=== PATIENT | female | born 1975 | race Caucasian/White ===

== ENCOUNTER 2019-02-26 16:31 | Emergency (ER) | payer MEDICAID, SELFPAY ==
[2019-02-26 17:07] VITALS: BP 160/91; PULSE 108; RESP 20; TEMP 36.3; O2SAT 97; BMI 38.9
[2019-02-26 17:56] LABS: Alanine Aminotransferase 22 U/L (0-33); Albumin Level 4.5 g/dL (3.5-5.2); Alkaline Phosphatase 126 IU/L (35-105); Anion Gap 17.3 (5-19); Aspartate Amino Transferase 19 U/L (0-32); Blood Urea Nitrogen 7 mg/dL (6-20); Calcium 10.3 mg/Dl (8.6-10.0); Carbon Dioxide 27 mmol/L (22-29); Chloride 92 mmol/L (98-107); Globulin 3.3 g/dL (1.3-4.6); Glomerular Filtration Rate 109.6 mL/min (90-130); Glucose 191 mg/dL (74-109); Potassium 4.3 mmol/L (3.5-5.1); Sodium 132 mmol/L (136-145); Total Bilirubin 0.4 mg/dL (0.15-1.2); Total Protein 7.8 g/dL (6.6-8.7)
[2019-02-26 18:01] LABS: Hematocrit 41.7 % (37.0-47.0); Hemoglobin 13.6 g/dL (11.5-15.3); Mean Corpuscular HGB Conc 32.6 g/dL (30.0-36.0); Mean Corpuscular Hemoglobin 27.8 pg (28.0-34.0); Mean Corpuscular Volume 85.3 fL (81-99); Platelet Count 466 10^3/cmm (130-400); Red Blood Count 4.89 10^6/uL (4.1-5.3); Red Cell Distribution Width 12.8 % (12.1-15.1); White Blood Count 12.9 10^3/uL (4.0-10.0)
[2019-02-26 18:26] LABS: HCG Qualitative Urine. Negative (Negative)
[2019-02-26 18:59] LABS: Absolute Eosinophils 0.1 10^3/cmm (0.0-0.7); Absolute Segmented Neutrophil 10.3 10/cmm (1.6-7.1); Eosinophils 1 %; Lymphocytes 16 %; Lymphocytes Absolute 2.2 10^3/cmm (1.2-3.4); Monocytes Absolute 0.3 10^3/cmm (0.1-0.6); Segmented Neutrophils 80 %; Total Cells Counted 100 (0-100)
[2019-02-26 19:00] LABS: Platelet Estimate Normal (Normal)
--- NOTE | 2019-02-26 23:07 | ED_ITS ---
HPI - General Adult General: Chief complaint: Vaginal Bleeding Stated complaint: vaginal bleeding Time Seen by Provider: 02/26/19 22:59 History of Present Illness: HPI narrative: Having cramping parents x4 weeks. Patient has history of tubal. Patient has appointment with her PCP on Onset (ago): week(s) Severity: moderate Associated symptoms: Deny chest pain, dyspnea, headache(s), nausea, rash or vomiting Review of Systems Const: Denies: fever, chills or body aches Eyes: Denies: change in vision or blurry vision ENMT: Denies: throat pain or nasal congestion Card: Denies: chest pain or shortness of breath on exertion Resp: Denies: shortness of breath, productive cough or non-productive cough GI: Denies: abdominal pain, nausea or vomiting : Reports: painful menstruation and irregular period (lasting 4 weeks with some clots); Denies: vaginal discharge, absence of menstruation, pelvic pain or pain during intercourse Musc: Denies: extremity pain Skin/Breast: Denies: rash Neuro: Denies: headache Psych: Denies: anxiety or depression Pedro/Lymph: Denies: easy bruising PFSH ED PFSH: Statuses (acute, chronic, etc) shown below reflect problem list status as previously entered and may not be historically accurate Social History Smoking and tobacco status: current every day smoker Female Reproductive History: Date of last menstrual period: 01/25/19 Physical Exam Const: COMMON NORMALS: no apparent distress, average body habitus and oriented x3 HENMT: COMMON NORMALS: normocephalic HEAD & SCALP: normal to inspection and normocephalic FACE & SINUS: normal facial exam Eye: COMMON NORMALS: conjunctivae normal GENERAL EYE: normal appearance of both eyes CONJUNCTIVA: Yes conjunctivae normal Neck/C-Spine: COMMON NORMALS: no JVD Chest: COMMONS NORMALS: inspection of chest normal Resp: COMMON NORMALS: normal respiratory effort and clear to auscultation bilaterally AUSCULTATION: clear to auscultation bilaterally Cardio: COMMON NORMALS: no JVD, regular rate and regular rhythm RATE: regular rate RHYTHM: regular rhythm GI: PALPATION: Yes tender Details: other (pelvic area) GI image (female): 1. Extremity: COMMON NORMALS: normal to inspection and full ROM Neuro: COMMON NORMALS: oriented x3 Course Vital Signs: Vital signs: Vital Signs Temperature 97.4 F L 02/26/19 17:07 Pulse Rate 100 02/26/19 23:35 Respiratory Rate 18 02/26/19 23:35 Blood Pressure 147/85 02/26/19 23:35 Pulse Oximetry 93 02/26/19 23:35 [facility] - General Adult Lab Data: Labs: Lab Results 02/26/19 02/26/19 02/26/19 Range/Units 17:30 17:30 17:50 WBC 12.9 H (4.0-10.0) 10^3/ uL RBC 4.89 (4.1-5.3) 10^6/u L Hgb 13.6 (11.5-15.3) g/dL Hct 41.7 (37.0-47.0) % MCV 85.3 (81-99) fL MCH 27.8 L (28.0-34.0) pg MCHC 32.6 (30.0-36.0) g/dL RDW 12.8 (12.1-15.1) % Plt Count 466 H (130-400) 10^3/c mm MPV 10.0 (7.4-10.4) fL Total Counted 100 (0-100) Atypical Lymphs % 1.0 (0-5) % Segmented Neutroph ils 80 % Absolute Lymphocyt es 2.2 (1.2-3.4) 10^3/c mm Lymphocytes (Manua l) 16 % Monocytes (Manual) 2.0 % Absolute Monocytes 0.3 (0.1-0.6) 10^3/c mm Eosinophils (Manua l) 1 % Absolute Eosinophi ls 0.1 (0.0-0.7) 10^3/c mm Platelet Estimate Normal (Normal) Sodium 132 L (136-145) mmol/L Potassium 4.3 (3.5-5.1) mmol/L Chloride 92 L (98-107) mmol/L Carbon Dioxide 27 (22-29) mmol/L Anion Gap 17.3 (5-19) BUN 7 (6-20) mg/dL Creatinine 0.6 (0.5-0.9) mg/dL GFR Calculation 109.6 (90-130) mL/min Glucose 191 H (74-109) mg/dL Calcium 10.3 H (8.6-10.0) mg/Dl Total Bilirubin 0.4 (0.15-1.2) mg/dL AST 19 (0-32) U/L ALT 22 (0-33) U/L Alkaline Phosphata se 126 H (35-105) IU/L Total Protein 7.8 (6.6-8.7) g/dL Albumin 4.5 (3.5-5.2) g/dL Globulin 3.3 (1.3-4.6) g/dL HCG, Qual Negative (Negative) Urine Color (Yellow) Urine Appearance (CLEAR) Urine pH (5-7) Ur Specific Gravit y (1.005-1.030) Urine Protein (Negative) Urine Glucose (UA) (Normal) Urine Ketones (Negative) Urine Occult Blood (Negative) Urine Nitrate (Negative) Urine Bilirubin (NEGATIVE) Urine Urobilinogen (Negative) mg/dL Ur Leukocyte Elizabeth ase (Negative) 02/26/19 Range/Units 17:50 WBC (4.0-10.0) 10^3/ uL RBC (4.1-5.3) 10^6/u L Hgb (11.5-15.3) g/dL Hct (37.0-47.0) % MCV (81-99) fL MCH (28.0-34.0) pg MCHC (30.0-36.0) g/dL RDW (12.1-15.1) % Plt Count (130-400) 10^3/c mm MPV (7.4-10.4) fL Total Counted (0-100) Atypical Lymphs % (0-5) % Segmented Neutroph ils % Absolute Lymphocyt es (1.2-3.4) 10^3/c mm Lymphocytes (Manua l) % Monocytes (Manual) % Absolute Monocytes (0.1-0.6) 10^3/c mm Eosinophils (Manua l) % Absolute Eosinophi ls (0.0-0.7) 10^3/c mm Platelet Estimate (Normal) Sodium (136-145) mmol/L Potassium (3.5-5.1) mmol/L Chloride (98-107) mmol/L Carbon Dioxide (22-29) mmol/L Anion Gap (5-19) BUN (6-20) mg/dL Creatinine (0.5-0.9) mg/dL GFR Calculation (90-130) mL/min Glucose (74-109) mg/dL Calcium (8.6-10.0) mg/Dl Total Bilirubin (0.15-1.2) mg/dL AST (0-32) U/L ALT (0-33) U/L Alkaline Phosphata se (35-105) IU/L Total Protein (6.6-8.7) g/dL Albumin (3.5-5.2) g/dL Globulin (1.3-4.6) g/dL HCG, Qual (Negative) Urine Color Yellow (Yellow) Urine Appearance Hazy A (CLEAR) Urine pH 7 (5-7) Ur Specific Gravit y 1.015 (1.005-1.030) Urine Protein Neg (Negative) Urine Glucose (UA) Norm (Normal) Urine Ketones Negative (Negative) Urine Occult Blood 3+ H (Negative) Urine Nitrate Negative (Negative) Urine Bilirubin Neg (NEGATIVE) Urine Urobilinogen 1 H (Negative) mg/dL Ur Leukocyte Elizabeth ase Negative (Negative) Discharge Plan Discharge Patient Disposition: Home, Self-Care Clinical Impression: Menometrorrhagia Condition: Stable Prescriptions: New hydrocodone-acetaminophen 5-325 mg tablet 1 tab PO Q6H PRN (Reason: pain) Qty: 14 RF: 0 medroxyprogesterone [Provera] 10 mg tablet 10 mg PO DAILY 10 Days RF: 0 ondansetron HCl [Zofran] 4 mg tablet 4 mg PO Q8H PRN (Reason: nausea and vomiting) 5 Days Qty: 14 RF: 0 Discharge Orders: Discharge Order (Routine); Ordered 02/26/19 Ordered By: Trevin Quiñonez Referrals: Maday Lamb APN [Family Provider] - Yolanda Madrigal FNP [Primary Care Provider] - Discharge Diet: Usual diet Discharge Activity: Increase activity as tolerated Patient Instructions: Dysmenorrhea (ED) Activity Restrictions/Additional Instructions: Take medication as prescribed. Follow-up with family PCP as directed. Can return if worsens. Drink plenty of fluids. Coding Level of Care Code ED Marketing Operations Assistant for Chg Fwd Exam Problem Focused
[2019-02-26 23:10] VITALS: BP 158/102; PULSE 100; RESP 18; O2SAT 94
[2019-02-26] MEDS: medroxyprogesterone 2.5 mg Tablet 10 MG PO (23:31)
[2019-02-26] MEDS: ondansetron 4 MG Tablet 8 MG PO (23:31)
[2019-02-26] MEDS: HYDROcodone-acetaminophen 7.5-325 mg Tablet 1 TAB PO (23:31)
[2019-02-26 23:35] VITALS: BP 147/85; PULSE 100; RESP 18; O2SAT 93
[2019-02-26 23:37] LABS: Protein Urine Neg (Negative); Specific Gravity, Urine 1.015 (1.005-1.030); Urine Appearance Hazy (CLEAR); Urine Color Yellow (Yellow); pH Urine 7 (5-7)
[2019-02-26 23:38] LABS: Add Urine Microscopic? YES; Bilirubin Urine Neg (NEGATIVE); Blood Urine 3+ (Negative); Glucose Urine UA Norm (Normal); Ketones Urine Negative (Negative); Leukocyte Esterase Urine Negative (Negative); Nitrate Urine Negative (Negative); Urobilinogen Urine 1 mg/dL (Negative)
[2019-02-26 23:42] LABS: Add Urine Culture? No; Bacteria Urine TRACE; Mucus Urine 2+; RBC Urine 0-4 /hpf (0-2); Squamous Epithelial Cell Urine 25-40 (0-5)
[2019-02-27 00:49] VITALS: BP 157/100; PULSE 91; RESP 16; O2SAT 95
== END 2019-02-27 00:50 | disposition home or self-care (01) ==
PROVIDERS: Family Medicine; Emergency Provider Nurse Practitioner Family; Family Provider Nurse Practitioner Family; PCP Nurse Practitioner Family
DX: N92.1 Excessive and frequent menstruation with irregular cycle (principal); F17.210 Nicotine dependence, cigarettes, uncomplicated
CPT/HCPCS: 36415; 80053; 81003; 81025; 85007; 85027; 99282; Q0162

== ENCOUNTER → 2019-02-28 15:24 | Outpatient (BNVA) | payer MEDICAID, SELFPAY | PROVIDERS: Family Provider Nurse Practitioner Family; PCP Nurse Practitioner Family; Visit Provider Nurse Practitioner Family | DX: E11.9 Type 2 diabetes mellitus without complications (principal); N92.1 Excessive and frequent menstruation with irregular cycle | CPT/HCPCS: 83036 ==

== ENCOUNTER → 2019-03-21 14:46 | Outpatient (BNVA) | payer MEDICAID, SELFPAY | PROVIDERS: Family Provider Nurse Practitioner Family; PCP Nurse Practitioner Family; Visit Provider Social Worker | DX: F43.12 Post-traumatic stress disorder, chronic (principal); F33.1 Major depressive disorder, recurrent, moderate; F41.0 Panic disorder [episodic paroxysmal anxiety] | CPT/HCPCS: 90832 ==

== ENCOUNTER → 2019-04-04 14:50 | Outpatient (BNVA) | payer MEDICAID, SELFPAY | PROVIDERS: PCP Nurse Practitioner Family; Visit Provider Social Worker | DX: F43.12 Post-traumatic stress disorder, chronic (principal); F33.1 Major depressive disorder, recurrent, moderate; F41.0 Panic disorder [episodic paroxysmal anxiety] | CPT/HCPCS: 90832; 90834 ==

== ENCOUNTER → 2019-04-09 09:45 | Outpatient (BNVA) | payer MEDICAID, SELFPAY | PROVIDERS: Family Provider Nurse Practitioner Family; PCP Nurse Practitioner Family; Visit Provider Nurse Practitioner Psychiatric/Mental Health | DX: F33.1 Major depressive disorder, recurrent, moderate (principal); F43.12 Post-traumatic stress disorder, chronic; F41.0 Panic disorder [episodic paroxysmal anxiety]; F17.210 Nicotine dependence, cigarettes, uncomplicated | CPT/HCPCS: 99214 ==

== ENCOUNTER → 2019-04-18 15:36 | Outpatient (BNVA) | payer MEDICAID, SELFPAY | PROVIDERS: Family Provider Nurse Practitioner Family; PCP Nurse Practitioner Family; Visit Provider Social Worker | DX: F43.12 Post-traumatic stress disorder, chronic (principal); F33.1 Major depressive disorder, recurrent, moderate; F41.0 Panic disorder [episodic paroxysmal anxiety] | CPT/HCPCS: 90834 ==

== ENCOUNTER → 2019-04-22 10:33 | Outpatient (BNVA) | payer MEDICAID, SELFPAY | PROVIDERS: PCP Nurse Practitioner Family; Visit Provider Nurse Practitioner Family | DX: E11.9 Type 2 diabetes mellitus without complications (principal); E03.9 Hypothyroidism, unspecified; E55.9 Vitamin D deficiency, unspecified; M25.551 Pain in right hip; M25.552 Pain in left hip; M54.5 Low back pain; I10 Essential (primary) hypertension; H60.502 Unspecified acute noninfective otitis externa, left ear | CPT/HCPCS: 80053; 80061; 82306; 83036; 84443; 85025 ==

== ENCOUNTER → 2019-05-27 15:34 | Outpatient (BNVA) | payer MEDICAID, SELFPAY | PROVIDERS: PCP Nurse Practitioner Family; Visit Provider Social Worker | DX: F33.1 Major depressive disorder, recurrent, moderate (principal); F43.12 Post-traumatic stress disorder, chronic; F41.0 Panic disorder [episodic paroxysmal anxiety] | CPT/HCPCS: 90834 ==

== ENCOUNTER → 2019-06-05 10:17 | Outpatient (BNVA) | payer MEDICAID, SELFPAY | PROVIDERS: PCP Nurse Practitioner Family; Visit Provider Obstetrics & Gynecology | DX: N85.4 Malposition of uterus (principal); N94.6 Dysmenorrhea, unspecified; N92.0 Excessive and frequent menstruation with regular cycle; N83.202 Unspecified ovarian cyst, left side | CPT/HCPCS: 76830 ==

== ENCOUNTER → 2019-06-07 07:28 | Outpatient (BNVA) | payer MEDICAID, SELFPAY | PROVIDERS: PCP Nurse Practitioner Family; Visit Provider Obstetrics & Gynecology | DX: N94.6 Dysmenorrhea, unspecified (principal) | CPT/HCPCS: 88305 ==

== ENCOUNTER → 2019-07-02 07:55 | Outpatient (BNVA) | payer MEDICAID, SELFPAY | PROVIDERS: PCP Nurse Practitioner Family; Visit Provider Nurse Practitioner Psychiatric/Mental Health | DX: F43.12 Post-traumatic stress disorder, chronic (principal); F41.0 Panic disorder [episodic paroxysmal anxiety]; F33.1 Major depressive disorder, recurrent, moderate | CPT/HCPCS: 99212 ==

== ENCOUNTER → 2019-07-04 11:07 | Outpatient (BNVA) | payer MEDICAID, SELFPAY ==
[2019-06-06 16:27] VITALS: BP 148/86; BMI 41.0
== END ==
PROVIDERS: PCP Nurse Practitioner Family; Visit Provider Obstetrics & Gynecology
DX: I10 Essential (primary) hypertension (principal); N92.1 Excessive and frequent menstruation with irregular cycle
CPT/HCPCS: 80048; 85027

== ENCOUNTER 2019-07-09 07:40 | Day surgery (SDC) | payer MEDICAID, SELFPAY ==
[2019-06-06 16:27] VITALS: BP 148/86; BMI 41.0
[2019-07-08 11:08] VITALS: BMI 40.1
[2019-07-09 08:06] LABS: Glucose Point of Care 257 mg/dL (70-110)
[2019-07-09] MEDS: ketorolac 30 mg/mL INJ IVP (08:06)
[2019-07-09] MEDS: sodium chloride 0.9% 1,000 ML 30 ML IV (08:07)
[2019-07-09 08:10] VITALS: BP 171/101; PULSE 98; RESP 18; TEMP 36.3; O2SAT 99
--- NOTE | 2019-07-09 08:19 | P.HPUD_ITS ---
Surgery/Procedure H&P Update DATE OF PROCEDURE: July 09, 2019 DATE H&P PERFORMED: 07/04/19 H&P UPDATE INFORMATION: I have reviewed H&P completed within last 30 days, I have examined patient prior to procedure, No changes to prior documentation and H&P is in [facility] EMR on date indicated PREOP DIAGNOSIS: Menorrhagia, Dysmenorrhea, Uterine fibroids PLANNED PROCEDURE: Operation Date: 07/09/19 09:00 Proposed Procedures p Hysteroscopy w/polypectomy, endometrial ablation w/Novasure Paracervical Block Code:69874/09374/N92.1/N94.6/D25.9(Not Applicable) - Cory Brito MD
[2019-07-09 08:22] LABS: OR HCG Qualitative Urine Negative (Negative)
--- NOTE | 2019-07-09 08:23 | ANES.PREANE2 ---
Pre-Anesthetic Assessment Pre-Anesthetic Assessment: Height/Weight: Height 1.6 m Weight 102.965 kg Temp Pulse Resp BP Pulse Ox 97.3 F L 98 18 171/101 99 07/09/19 08:10 07/09/19 08:10 07/09/19 08:10 07/09/19 08:10 07/09/19 08:10 Preop Diagnosis: Menorrhagia, Dysmenorrhea, Uterine fibroids Proposed Procedure: Operation Date: 07/09/19 09:00 Proposed Procedures p Hysteroscopy w/polypectomy, endometrial ablation w/Novasure Paracervical Block Code:07161/21444/N92.1/N94.6/D25.9(Not Applicable) - Cory Brito MD Familial anesthetic complications: none Was Beta Hunter taken within 24 hours: N/A Last intake: Intake Last Liquid Date 07/09/19 Last Liquid Time 18:30 Last Solid Date 07/08/19 Last Solid Time 18:30 Social: Social History: Tobacco and No alcohol Exam: Pre-Anes Outpt Exam: alert, oriented x 3, clear to auscultation bilaterally and regular rate & rhythm Airway: Cervical ROM: WNL MP: 3 Dentition: Full Pulmonary: Pulmonary: None reported CV/HEM: CV/HEM: HTN : : None reported Hepatic: Hepatic: None reported Metabolic: Metabolic: DM, Morbid obesity and Thyroid Musc/skel: Musc/skel: None reported Neuropsych: Neuropsych: None reported Anesthetic Plan: ASA status: 2 Anesthesia: MAC Risk of > 500 ml blood loss (7ml/kg in children): No Meds/Allergies Current Medications: Current Medications Generic Name Dose Route Start Last Admin Trade Name Freq PRN Reason Stop Dose Admin Sodium Chloride 1,000 mls @ 30 ml s/hr 07/09/19 07:45 07/09/19 08:07 Sodium Chloride 0.9% IV 07/10/19 07:44 30 mls/hr .Q24H JT Administration PFSH Anesthesia PFSH: Medical History Chronic post-traumatic stress disorder (PTSD) Essential hypertension Hypothyroidism (acquired) Major depressive disorder, recurrent, moderate Panic disorder Type 2 diabetes mellitus Vitamin D deficiency Surgical History History of section x 3. History of cholecystectomy (~2001) History of dilatation and curettage (~2008) History of hernia repair (~2012) History of tubal ligation History of ventricular septal defect repair (~1992) age 17 Family History Mother Hypertension Hyperlipidemia Thyroid disease Father Hypertension Hyperlipidemia Heart disease Brother Thyroid disease Grandmother Cancer Maternal grandmother--cervical cancer, ovarian cancer Paternal grandmother--cervical cancer Diabetes Paternal grandmother Maternal grandmother Social History (Updated 07/04/19 @ 08:52 by Cory Brito MD) Smoking and tobacco status: current every day smoker cigarettes Packs smoked per day: 0.5 Years cigarettes smoked: 20 Alcohol intake: current Alcohol intake frequency: few times a month Alcohol type: beer Female Reproductive History: Date of last menstrual period: 01/25/19 Data Anesthesia Other Labs: Laboratory Results - last 48 hr 07/09/19 08:03 POC Glucose 257 Cardiac Studies: No Data to Display
[2019-07-09 08:27] VITALS: BP 125/86
[2019-07-09] MEDS: insulin regular-human 100 units/1 mL 5 UNIT IVP (08:30)
[2019-07-09 08:47] LABS: Glucose Point of Care 208 mg/dL (70-110)
--- NOTE | 2019-07-09 10:24 | P.OP_ITS ---
Operative Report Date of procedure: July 09, 2019 Pre-op Diagnosis: Menorrhagia, Dysmenorrhea, Uterine fibroids Post-op Diagnosis: Menorrhagia, Dysmenorrhea, Uterine fibroids Procedure Done: Hysteroscopy with endometrial ablation with NovaSure, Paracervical block Specimens removed/disposition: None Surgeon: Cory Brito Anesthesia: MAC and Other (Paracervical block) Estimated blood loss (mL): 5 Complications: None Findings: First-degree uterine prolapse. Slight bulge to the anterior uterine wall, consistent with fibroid seen on ultrasound. Rest of the cavity was normal in appearance. Both tubal ostia identified. Brief History: Patient is a 43-year-old white female 4, para 3-0-1-3 with an LMP of 06/21/2019 who is status post tubal ligation. She presented to the office on 05/06/2019 complaining of heavy periods dating back to menarche. She reports that she is currently bleeding up to 2 weeks at a time. Reports passage of up to half dollar size clots. Changes a pad every 2 hours and will still bleed through to her clothing. She reports she has missed work due to the heaviness of her bleeding. She was also reporting severe cramping with her menses. She has been tried on control pills and Depo-Provera in the past. Ultrasound was performed which showed a 4.2 x 3.3 x 3.7 cm fibroid in the anterior uterine wall which traverses the entire thickness of the uterus. Treatment options were discussed with her. She is presenting for an endometrial ablation with NovaSure. Procedure: The patient was taken to the operating room where IV sedation was started. She was prepped and draped in the usual sterile fashion in the dorsal supine position with legs in Tobias style stirrups. Sequential compression boots had been placed prior to starting the case. Patient had voided just before coming to the operating room. Exam under anesthesia was performed and the patient was noted to have first- degree uterine prolapse. A weighted speculum was placed in the vagina and the cervix was grasped with a single-tooth tenaculum. A paracervical block was performed with a total of 12 mL of 2% lidocaine with epinephrine used. The cervix was serially dilated until a operative hysteroscope could be passed. Crystalloid solution was used as a distention media. The endometrial cavity was inspected and appeared normal except for a slight bulge along the anterior uterine wall. Using the NovaSure sound, endometrial cavity length was measured at 5.5 cm. The NovaSure device was inserted and device was deployed. The device was moved up and down and left and right until no further with adjustment occurred. Uterine width was measured at 4.8 cm. Settings were entered in the NovaSure machine and wattage was set at 145 Gonzalez. Cavity integrity check was performed and integrity confirmed. Device was then activated. Total treatment time was 1 minutes 3 seconds. Device was removed. The tenaculum was removed and there was minimal bleeding from the tenaculum site. Patient tolerated the procedure well. Sponge and needle counts were correct. DRAINS: None POSTOPERATIVE STATUS: The patient was transferred to the recovery room in satisfactory condition DISPOSITION: Discharge to home when criteria was met. FOLLOWUP APPOINTMENT: Followup appointment had been scheduled on 07/25/2019 in my office. MEDICATIONS: She is to resume her usual home medications.
[2019-07-09 10:25] VITALS: BP 124/86; PULSE 101; RESP 18; TEMP 36.7; O2SAT 93
[2019-07-09 10:47] VITALS: BP 130/85; PULSE 94; RESP 18; O2SAT 93
== END 2019-07-09 10:56 | disposition home or self-care (01) ==
PROVIDERS: PCP Nurse Practitioner Family; Visit Provider Obstetrics & Gynecology
PROC: 0U598ZZ Destruction of Uterus, Via Natural or Artificial Opening Endoscopic (ICD-10-PCS; CPT 58563; principal; 2019-07-09 09:00)
DX: N92.0 Excessive and frequent menstruation with regular cycle (principal); N94.6 Dysmenorrhea, unspecified; D25.9 Leiomyoma of uterus, unspecified; I10 Essential (primary) hypertension; E11.9 Type 2 diabetes mellitus without complications; E66.01 Morbid (severe) obesity due to excess calories; Z68.41 Body mass index [BMI] 40.0-44.9, adult; E03.9 Hypothyroidism, unspecified; F17.210 Nicotine dependence, cigarettes, uncomplicated
CPT/HCPCS: 58563; 12345; 36416; 81025; 82962; 84703; 96374; 96375; J1815; J1885; J2001; J2405; J2704; J3010; J3490; J7030

== ENCOUNTER → 2019-08-01 07:59 | Outpatient (BNVA) | payer MEDICAID, SELFPAY ==
[2019-06-06 16:27] VITALS: BP 148/86; BMI 41.0
== END ==
PROVIDERS: PCP Nurse Practitioner Family; Visit Provider Nurse Practitioner Psychiatric/Mental Health
DX: F33.1 Major depressive disorder, recurrent, moderate (principal); F41.0 Panic disorder [episodic paroxysmal anxiety]; F43.12 Post-traumatic stress disorder, chronic
CPT/HCPCS: 99212

== ENCOUNTER → 2019-09-10 15:29 | Outpatient (BNVA) | payer OTHER, SELFPAY ==
[2019-06-06 16:27] VITALS: BP 148/86; BMI 41.0
== END ==
PROVIDERS: PCP Nurse Practitioner Family; Visit Provider Dermatology
DX: F33.1 Major depressive disorder, recurrent, moderate (principal); Z79.899 Other long term (current) drug therapy
CPT/HCPCS: 80061; 83036

== ENCOUNTER → 2019-09-17 08:13 | Outpatient (BNVA) | payer MEDICAID, SELFPAY ==
[2019-06-06 16:27] VITALS: BP 148/86; BMI 41.0
== END ==
PROVIDERS: PCP Nurse Practitioner Family; Visit Provider Counselor Professional
DX: F43.12 Post-traumatic stress disorder, chronic (principal); F41.0 Panic disorder [episodic paroxysmal anxiety]; F33.1 Major depressive disorder, recurrent, moderate
CPT/HCPCS: 90834

== ENCOUNTER → 2019-09-23 09:03 | Outpatient (BNVA) | payer MEDICAID, SELFPAY ==
[2019-09-17 10:03] VITALS: BP 155/93; BMI 43.9
== END ==
PROVIDERS: PCP Nurse Practitioner Family; Visit Provider Nurse Practitioner Psychiatric/Mental Health
DX: F33.1 Major depressive disorder, recurrent, moderate (principal); F41.0 Panic disorder [episodic paroxysmal anxiety]; F43.12 Post-traumatic stress disorder, chronic
CPT/HCPCS: 99212

== ENCOUNTER → 2019-09-25 16:45 | Outpatient (BNVA) | payer MEDICAID, SELFPAY ==
[2019-09-17 10:03] VITALS: BP 155/93; BMI 43.9
== END ==
PROVIDERS: PCP Nurse Practitioner Family; Visit Provider Nurse Practitioner Family
DX: I10 Essential (primary) hypertension (principal); E55.9 Vitamin D deficiency, unspecified; E03.9 Hypothyroidism, unspecified; E11.9 Type 2 diabetes mellitus without complications; M15.9 Polyosteoarthritis, unspecified
CPT/HCPCS: 80053; 82306

== ENCOUNTER → 2019-09-26 16:50 | Outpatient (BNVA) | payer MEDICAID, SELFPAY ==
[2019-09-17 10:03] VITALS: BP 155/93; BMI 43.9
== END ==
PROVIDERS: PCP Nurse Practitioner Family; Visit Provider Nurse Practitioner Family
DX: I10 Essential (primary) hypertension (principal); E55.9 Vitamin D deficiency, unspecified; E03.9 Hypothyroidism, unspecified; E11.9 Type 2 diabetes mellitus without complications; M15.9 Polyosteoarthritis, unspecified
CPT/HCPCS: 84443

== ENCOUNTER → 2019-12-19 09:05 | Outpatient (BNVA) | payer MEDICAID, SELFPAY ==
[2019-12-07 11:25] VITALS: BP 155/93; BMI 43.9
== END ==
PROVIDERS: PCP Nurse Practitioner Family; Visit Provider Orthopaedic Surgery
DX: M47.892 Other spondylosis, cervical region (principal); R26.89 Other abnormalities of gait and mobility; M54.10 Radiculopathy, site unspecified
CPT/HCPCS: 72050

== ENCOUNTER 2019-12-31 13:31 | Outpatient (CLI) | payer MEDICAID, SELFPAY ==
[2019-12-07 11:25] VITALS: BP 155/93; BMI 43.9
--- NOTE | 2019-12-31 13:45 | MR_ITS ---
WS: [id number] MRI CERVICAL SPINE NONCONTRAST TECHNIQUE: Sagittal T1, T2 and STIR imaging. Axial T2, gradient, and fiesta imaging. CLINICAL INFORMATION: R26.89 Other abnormalities of gait and mobility COMPARISON: MRI 7 018 FINDINGS: Straightening of the normal cervical lordosis. Mild disc bulging worse at C5-C6 and C6-C7 with mild/m oderate central canal stenosis. Cord signal is normal. Some images degraded by patient motion. C2-C3: Normal. C3-C4: Normal. C4-C5: Mild disc bulging with osteophytic ridging. Mild right and no significant left foraminal narro wing. Spinal canal is patent. C5-C6: Right pericentral disc osteophyte protrusion with indentation right ventral cervical cord. Mod erate central canal stenosis. Severe right and mild to moderate left foraminal narrowing. Disc hernia tion at this level has improved compared to 2018. Mild facet arthropathy. C6-C7: Shallow left pericentral disc protrusion with slight contact of the left ventral cervical cord . Mild central canal stenosis. Mild left and no significant right foraminal narrowing. C7-T1: Normal. Visualized brain stem structures: Normal. Prevertebral soft tissues: Normal. MR/MR cervical spin wo con* [id number] IMPRESSION: 1. Straightening of the normal cervical lordosis with disc bulging worse at C5 -C6 and C6-C7. 2. Right pericentral disc osteophyte protrusion with indentation on the right ventral cervical cord. Moderate central canal stenosis. Partial involution of the disc herniation compared to 2018. 3. Severe right C5-6 foraminal narrowing at this level. 4. Shallow left pericentral protrusion C6-7 with slight contact of the left ve ntral cervical cord. Mild central canal stenosis. Mild left foraminal narrowing . 5. No other significant changes from previous.
== END 2019-12-31 13:32 | disposition home or self-care (01) ==
LOC: RADSHAW 13:33
PROVIDERS: PCP Nurse Practitioner Family; Visit Provider Orthopaedic Surgery
DX: R26.89 Other abnormalities of gait and mobility (principal); M54.10 Radiculopathy, site unspecified; M50.223 Other cervical disc displacement at C6-C7 level; M25.78 Osteophyte, vertebrae; M48.02 Spinal stenosis, cervical region
CPT/HCPCS: 72141

== ENCOUNTER → 2020-01-02 08:48 | Outpatient (BNVA) | payer MEDICAID, SELFPAY ==
[2019-12-07 11:25] VITALS: BP 155/93; BMI 43.9
== END ==
PROVIDERS: PCP Nurse Practitioner Family; Visit Provider Nurse Practitioner Psychiatric/Mental Health
DX: F33.1 Major depressive disorder, recurrent, moderate (principal); F43.12 Post-traumatic stress disorder, chronic; F41.0 Panic disorder [episodic paroxysmal anxiety]; Z51.81 Encounter for therapeutic drug level monitoring
CPT/HCPCS: 99212

== ENCOUNTER → 2020-01-06 10:19 | Outpatient (BNVA) | payer MEDICAID, SELFPAY ==
[2019-12-07 11:25] VITALS: BP 155/93; BMI 43.9
== END ==
PROVIDERS: PCP Nurse Practitioner Family; Visit Provider Nurse Practitioner Family
DX: I10 Essential (primary) hypertension (principal); E11.9 Type 2 diabetes mellitus without complications; E55.9 Vitamin D deficiency, unspecified; E03.9 Hypothyroidism, unspecified; Z51.81 Encounter for therapeutic drug level monitoring; Z79.899 Other long term (current) drug therapy
CPT/HCPCS: 80053; 80061; 82043; 82306; 83036; 84443; 85025

== ENCOUNTER → 2020-01-28 07:48 | Outpatient (BNVA) | payer MEDICAID, SELFPAY ==
[2019-12-07 11:25] VITALS: BP 155/93; BMI 43.9
== END ==
PROVIDERS: PCP Nurse Practitioner Family; Visit Provider Nurse Practitioner Psychiatric/Mental Health
DX: F41.0 Panic disorder [episodic paroxysmal anxiety] (principal); F43.12 Post-traumatic stress disorder, chronic; F33.1 Major depressive disorder, recurrent, moderate
CPT/HCPCS: 99212

== ENCOUNTER → 2020-02-03 09:16 | Outpatient (BNVA) | payer MEDICAID, SELFPAY ==
[2019-12-07 11:25] VITALS: BP 155/93; BMI 43.9
== END ==
PROVIDERS: PCP Nurse Practitioner Family; Visit Provider Anesthesiology Pain Medicine
DX: M47.812 Spondylosis without myelopathy or radiculopathy, cervical region (principal); M48.02 Spinal stenosis, cervical region; M54.12 Radiculopathy, cervical region; M62.838 Other muscle spasm; F17.210 Nicotine dependence, cigarettes, uncomplicated
CPT/HCPCS: 99204

== ENCOUNTER → 2020-02-17 13:25 | Outpatient (BNVA) | payer MEDICAID, SELFPAY ==
[2019-12-07 11:25] VITALS: BP 155/93; BMI 43.9
== END ==
PROVIDERS: PCP Nurse Practitioner Family; Visit Provider Anesthesiology Pain Medicine
DX: G89.29 Other chronic pain (principal); M54.12 Radiculopathy, cervical region; E11.9 Type 2 diabetes mellitus without complications; F17.210 Nicotine dependence, cigarettes, uncomplicated
CPT/HCPCS: 62321; J1100

== ENCOUNTER → 2020-03-06 13:07 | Outpatient (BNVA) | payer MEDICAID, SELFPAY ==
[2019-12-07 11:25] VITALS: BP 155/93; BMI 43.9
== END ==
PROVIDERS: PCP Nurse Practitioner Family; Visit Provider Anesthesiology Pain Medicine
DX: G89.29 Other chronic pain (principal); M54.12 Radiculopathy, cervical region; M47.812 Spondylosis without myelopathy or radiculopathy, cervical region; M48.02 Spinal stenosis, cervical region; M62.838 Other muscle spasm; F17.210 Nicotine dependence, cigarettes, uncomplicated
CPT/HCPCS: 99213; 99214

== ENCOUNTER → 2020-03-11 12:39 | Outpatient (BNVA) | payer MEDICAID, SELFPAY ==
[2019-12-07 11:25] VITALS: BP 155/93; BMI 43.9
== END ==
PROVIDERS: PCP Nurse Practitioner Family; Visit Provider Anesthesiology Pain Medicine
DX: M54.12 Radiculopathy, cervical region (principal); M54.5 Low back pain; F17.210 Nicotine dependence, cigarettes, uncomplicated
CPT/HCPCS: 62321; J1100

== ENCOUNTER → 2020-03-24 09:30 | Outpatient (BNVA) | payer MEDICAID, SELFPAY ==
[2019-12-07 11:25] VITALS: BP 155/93; BMI 43.9
== END ==
PROVIDERS: PCP Nurse Practitioner Family; Visit Provider Nurse Practitioner Psychiatric/Mental Health
DX: F41.0 Panic disorder [episodic paroxysmal anxiety] (principal); F43.12 Post-traumatic stress disorder, chronic; F33.1 Major depressive disorder, recurrent, moderate
CPT/HCPCS: 99214

== ENCOUNTER → 2020-03-25 09:50 | Outpatient (BNVA) | payer MEDICAID, SELFPAY ==
[2019-12-07 11:25] VITALS: BP 155/93; BMI 43.9
== END ==
PROVIDERS: PCP Nurse Practitioner Family; Visit Provider Anesthesiology Pain Medicine
DX: M51.17 Intervertebral disc disorders with radiculopathy, lumbosacral region (principal); M47.812 Spondylosis without myelopathy or radiculopathy, cervical region; M48.02 Spinal stenosis, cervical region; M62.838 Other muscle spasm; F17.210 Nicotine dependence, cigarettes, uncomplicated
CPT/HCPCS: 99214

== ENCOUNTER → 2020-03-31 13:03 | Outpatient (BNVA) | payer MEDICAID, SELFPAY ==
[2019-12-07 11:25] VITALS: BP 155/93; BMI 43.9
== END ==
PROVIDERS: PCP Nurse Practitioner Family; Visit Provider Anesthesiology Pain Medicine
DX: Z01.812 Encounter for preprocedural laboratory examination (principal); G89.29 Other chronic pain; M54.12 Radiculopathy, cervical region; M48.02 Spinal stenosis, cervical region; E11.9 Type 2 diabetes mellitus without complications; F17.210 Nicotine dependence, cigarettes, uncomplicated
CPT/HCPCS: 62321; J1100

== ENCOUNTER → 2020-04-02 14:03 | Outpatient (BNVA) | payer MEDICAID, SELFPAY ==
[2019-12-07 11:25] VITALS: BP 155/93; BMI 43.9
== END ==
PROVIDERS: PCP Nurse Practitioner Family; Visit Provider Nurse Practitioner Family
DX: R30.0 Dysuria (principal); E11.9 Type 2 diabetes mellitus without complications; E55.9 Vitamin D deficiency, unspecified; E03.9 Hypothyroidism, unspecified; B37.3 Candidiasis of vulva and vagina
CPT/HCPCS: 80053; 80061; 81003; 82306; 83036; 84443; 85025; 87086

== ENCOUNTER → 2020-04-16 13:37 | Outpatient (BNVA) | payer MEDICAID, SELFPAY ==
[2019-12-07 11:25] VITALS: BP 155/93; BMI 43.9
== END ==
PROVIDERS: PCP Nurse Practitioner Family; Visit Provider Anesthesiology Pain Medicine
DX: G89.29 Other chronic pain (principal); M54.12 Radiculopathy, cervical region; M47.812 Spondylosis without myelopathy or radiculopathy, cervical region; M48.02 Spinal stenosis, cervical region; M62.838 Other muscle spasm; F17.210 Nicotine dependence, cigarettes, uncomplicated
CPT/HCPCS: 99214

== ENCOUNTER → 2020-04-22 13:05 | Outpatient (BNVA) | payer MEDICAID, SELFPAY ==
[2019-12-07 11:25] VITALS: BP 155/93; BMI 43.9
== END ==
PROVIDERS: PCP Nurse Practitioner Family; Visit Provider Counselor Professional
DX: F43.12 Post-traumatic stress disorder, chronic (principal)
CPT/HCPCS: 90791

== ENCOUNTER → 2020-05-21 11:06 | Outpatient (BNVA) | payer MEDICAID, SELFPAY ==
[2019-12-07 11:25] VITALS: BP 155/93; BMI 43.9
== END ==
PROVIDERS: PCP Nurse Practitioner Family; Visit Provider Nurse Practitioner Family
DX: Z01.818 Encounter for other preprocedural examination (principal); G89.29 Other chronic pain; M54.2 Cervicalgia
CPT/HCPCS: 80053; 85025

== ENCOUNTER → 2020-06-08 14:27 | Outpatient (BNVA) | payer MEDICAID, SELFPAY ==
[2019-12-07 11:25] VITALS: BP 155/93; BMI 43.9
== END ==
PROVIDERS: PCP Nurse Practitioner Family; Visit Provider Orthopaedic Surgery
DX: M47.812 Spondylosis without myelopathy or radiculopathy, cervical region (principal); M48.02 Spinal stenosis, cervical region; M54.12 Radiculopathy, cervical region
CPT/HCPCS: 87635

== ENCOUNTER → 2020-06-11 13:25 | Outpatient (BNVA) | payer MEDICAID, SELFPAY ==
[2019-12-07 11:25] VITALS: BP 155/93; BMI 43.9
== END ==
PROVIDERS: PCP Nurse Practitioner Family; Visit Provider Anesthesiology Pain Medicine
DX: G89.29 Other chronic pain (principal); M47.812 Spondylosis without myelopathy or radiculopathy, cervical region; M48.02 Spinal stenosis, cervical region; M54.12 Radiculopathy, cervical region; M62.838 Other muscle spasm; F17.210 Nicotine dependence, cigarettes, uncomplicated
CPT/HCPCS: 99214

== ENCOUNTER 2020-06-15 14:12 | Observation (INO) | payer MEDICAID, SELFPAY ==
[2019-12-07 11:25] VITALS: BP 155/93; BMI 43.9
[2020-06-08 09:33] VITALS: BMI 40.0
--- NOTE | 2020-06-08 10:10 | P.ANESASSM_ITS ---
Pre-Anesthetic Assessment Pre-Anesthetic Assessment: Height/Weight: Height 1.6 m Weight 102.512 kg Preop Diagnosis: Menorrhagia, Dysmenorrhea, Uterine fibroids Proposed Procedure: Operation Date: 06/15/20 07:00 Proposed Procedures p C 06/25 07/27 ACDF 04015, 50685, 88249, 89923, 03661 M47.12 M47.22(Not Applicable) - Carlos Mckeon, DO Was Beta Hunter taken within 24 hours: N/A Was Clonidine taken within 24 hours: N/A Social: Social History: Tobacco and No alcohol Exam: Pre-Anes Outpt Exam: alert, oriented x 3 and regular rate & rhythm Airway: Submandibular: WNL Cervical ROM: WNL MP: 2 Dentition: Chipped Additional comments: Poor, multiple caries Pulmonary: Pulmonary: COPD GI: GI: GERD Metabolic: Metabolic: DM, Morbid obesity and Thyroid Musc/skel: Musc/skel: Fibromyalgia Comments: Chronic pain Neuropsych: Neuropsych: Anxiety and Depression Anesthetic Plan: ASA status: 3 Anesthesia: General Risk of > 500 ml blood loss (7ml/kg in children): No PFSH Anesthesia PFSH: Medical History Chronic post-traumatic stress disorder (PTSD) Essential hypertension History of hysteroscopy (~07/09/19) Hysteroscopy with endometrial ablation with NovaSure with Dr. Brito at [facility] Hypothyroidism (acquired) Major depressive disorder, recurrent, moderate Panic disorder Type 2 diabetes mellitus Vitamin D deficiency Surgical History History of section x 3. History of cholecystectomy (~2001) History of dilatation and curettage (~2008) History of hernia repair (~2012) History of tubal ligation History of ventricular septal defect repair (~1992) age 17 Family History Mother Hypertension Hyperlipidemia Thyroid disease Father Hypertension Hyperlipidemia Heart disease Brother Thyroid disease Grandmother Cancer Maternal grandmother--cervical cancer, ovarian cancer Paternal grandmother--cervical cancer Diabetes Paternal grandmother Maternal grandmother Other Major depressive disorder, recurrent, moderate Social History Smoking and tobacco status: current every day smoker cigarettes Packs smoked per day: 1 Years cigarettes smoked: 20 Quit status (tobacco): has tried quititng Second hand smoke exposure: No Smoking risk assessment/counseling performed?: No Alcohol intake: current Alcohol intake frequency: few times a month Alcohol type: beer Desire information about substance/drug rehabilitation?: No Adopted: No Caregiver/support person: No Lives independently: Yes Household members: significant other and children Housing: Manufactured/Mobile home Marital status: Number of children: 3 Number of grandchildren: 1 Highest education level completed: High School Graduate service: No Current occupational status: disabled Pets and animals: Yes Pets & animals: dog(s) History of recent travel: No Leisure activites: fishing, reading and other Leisure activities details: shaggy, camping, coloring Sexually active: Yes Current gender identity: Female Lisa/Orthodoxy: Rastafari Special lisa needs: No Agree to transfusion: Yes Financial difficulty paying for basics: Not Very Hard Female Reproductive History: Date of last menstrual period: 09/09/19 Para: 3 Spontaneous abortions: Yes Data Anesthesia Cardiac Studies: No Data to Display
[2020-06-15] VITALS (29 sets, daily range): BP systolic 101–211; BP diastolic 81–145; PULSE 90–120; RESP 16–25; TEMP 36.2–37.1; O2SAT 88–98
--- NOTE | 2020-06-15 | SCC_ITS ---
Procedure Done: 1. Anterior diskectomy C5/6 2. Anterior discectomy C6/7 3. Insertion of cage C5/6 4. Insertion of Cage C6/7 5. Instrumentation with anterior plate from C5-C7 6. Use of allograft 13.8 seconds of fluoroscopic guidance, for a cumulative dose of 2.71 mGy, was provided to Dr. Mckeon by the radiology department. C-arm images of the cervical spine were saved for the patient's permanent record. KRISSD
[2020-06-15 06:28] LABS: Glucose Point of Care 234 mg/dL (70-110)
--- NOTE | 2020-06-15 06:31 | W.PM.OPSUD ---
Surgery/Procedure H&P Update DATE OF PROCEDURE: June 15, 2020 DATE H&P PERFORMED: 05/19/20 H&P UPDATE INFORMATION: I have reviewed H&P completed within last 30 days, I have examined patient prior to procedure and No changes to prior documentation PREOP DIAGNOSIS: cervical spondylosis with radiculopathy PLANNED PROCEDURE: Operation Date: 06/15/20 07:00 Proposed Procedures p C 06/25 07/27 ACDF 89117, 44111, 76252, 79376, 81169 M47.12 M47.22(Not Applicable) - Carlos Mckeon DO
[2020-06-15] MEDS: sodium chloride 0.9% 1,000 ML 30 ML IV (06:36)
--- NOTE | 2020-06-15 06:36 | P.ANESASSM_ITS ---
Pre-Anesthetic Assessment Pre-Anesthetic Assessment: Height/Weight: Height 1.6 m Weight 102.512 kg Temp Pulse Resp BP Pulse Ox 97.2 F L 101 H 16 148/93 98 06/15/20 06:14 06/15/20 06:14 06/15/20 06:14 06/15/20 06:14 06/15/20 06:14 Preop Diagnosis: cervical spondylosis with radiculopathy Proposed Procedure: Operation Date: 06/15/20 07:00 Proposed Procedures p C 06/25 67 ACDF 27087, 21791, 67628, 12796, 24111 M47.12 M47.22(Not Applicable) - Carlos Mckeon, Last intake: Intake Last Liquid Date 06/14/20 Last Liquid Time 22:30 Last Solid Date 06/14/20 Last Solid Time 20:30 Exam: Pre-Anes Outpt Exam: alert, oriented x 3, clear to auscultation bilaterally and regular rate & rhythm Pulmonary: Pulmonary: None reported CV/HEM: CV/HEM: None reported Anesthetic Plan: ASA status: 2 Anesthesia: Anesthesia Evaluation Risk of > 500 ml blood loss (7ml/kg in children): Yes, adequate IV access and fluids planned PFSH Anesthesia PFSH: Medical History Chronic post-traumatic stress disorder (PTSD) Essential hypertension History of hysteroscopy (~07/09/19) Hysteroscopy with endometrial ablation with NovaSure with Dr. Brito at [facility] Hypothyroidism (acquired) Major depressive disorder, recurrent, moderate Panic disorder Type 2 diabetes mellitus Vitamin D deficiency Surgical History History of section x 3. History of cholecystectomy (~2001) History of dilatation and curettage (~2008) History of hernia repair (~2012) History of tubal ligation History of ventricular septal defect repair (~1992) age 17 Family History Mother Hypertension Hyperlipidemia Thyroid disease Father Hypertension Hyperlipidemia Heart disease Brother Thyroid disease Grandmother Cancer Maternal grandmother--cervical cancer, ovarian cancer Paternal grandmother--cervical cancer Diabetes Paternal grandmother Maternal grandmother Other Major depressive disorder, recurrent, moderate Social History Smoking and tobacco status: current every day smoker cigarettes Packs smoked per day: 1 Years cigarettes smoked: 20 Quit status (tobacco): has tried quititng Second hand smoke exposure: No Smoking risk assessment/counseling performed?: No Alcohol intake: current Alcohol intake frequency: few times a month Alcohol type: beer Desire information about substance/drug rehabilitation?: No Adopted: No Caregiver/support person: No Lives independently: Yes Household members: significant other and children Housing: Manufactured/Mobile home Marital status: Number of children: 3 Number of grandchildren: 1 Highest education level completed: High School Graduate service: No Current occupational status: disabled Pets and animals: Yes Pets & animals: dog(s) History of recent travel: No Leisure activites: fishing, reading and other Leisure activities details: shaggy, camping, coloring Sexually active: Yes Current gender identity: Female Lisa/Druze: Spiritism Special lisa needs: No Agree to transfusion: Yes Financial difficulty paying for basics: Not Very Hard Female Reproductive History: Date of last menstrual period: 09/09/19 Para: 3 Spontaneous abortions: Yes Data Anesthesia Other Labs: Laboratory Results - last 48 hr 06/15/20 06:25 POC Glucose 234 H Cardiac Studies: No Data to Display
[2020-06-15 06:42] LABS: OR HCG Qualitative Urine Negative (Negative)
[2020-06-15 06:52] LABS: Glucose Point of Care 233 mg/dL (70-110)
[2020-06-15] MEDS: thrombin 5,000 unit SDV 5000 UNIT XX (08:00)
--- NOTE | 2020-06-15 09:30 | P.OP_ITS ---
Operative Report Date of procedure: June 15, 2020 Pre-op Diagnosis: cervical spondylosis with radiculopathy Post-op diagnosis: same Procedure Done: 1. Anterior diskectomy C5/6 2. Anterior discectomy C6/7 3. Insertion of cage C5/6 4. Insertion of Cage C6/7 5. Instrumentation with anterior plate from C5-C7 6. Use of allograft Anesthesia: General Estimated blood loss (mL): 20 Condition: stable Disposition: PACU Procedure: The patient was taken to the operating room, where he underwent ge neral endotracheal anesthesia without complications. He was then positioned supine on the operating table, and all areas of impingement were well padded. The arms were carefully padded and tucked at his sides. A roll was placed between the shoulder blades.. An x-ray was done to determine the appropriate level for the skin incision. The entire neck was then sterilely prepped and draped in the usual fashion. Neuromonitoring was attached prior to prepping. A transverse skin incision was made and carried down to the platysma muscle. This was then split in line with its fibers. Blunt dissection was carried down medial to the carotid sheath and lateral to the trachea and esophagus until the anterior cervical spine was visualized. A needle was placed into a disc and an x-ray was done to determine its location. The longus colli muscles were then elevated bilaterally with the electrocautery unit. Self-retaining retractors were placed deep to the longus colli muscle. Attention was brought to the C5-6 level that was confirmed on x-ray. The microscope was then brought in. A radical anterior discectomies were performed at C5-6. This included complete removal of the anterior annulus, nucleus, and posterior annulus. The posterior longitudinal ligament was removed as were the posterior osteophytes. Foraminotomies were then accomplished bilaterally. This was done using a high speed ceasar, kerrison rongeurs and curretes Once all of this was accomplished, the curved currette was used to check for any residual compression. The central canal was wide open as were the foramen. A high-speed bur was used to remove the cartilaginous endplates above and below the interspace. Bleeding cancellous bone was exposed. The disc space were measured and appropriate size cage were placed sterilely onto the field. Allograft graft was packed into the cages. The cage was then placed and there was good juxtaposition against the bleeding decorticated surfaces and good distraction of each interspace. Attention was brought to the next interspace. Attention was brought to the C6/7 level that was confirmed on x-ray. The microscope was then brought in. A radical anterior discectomies were performed at C6/7. This included complete removal of the anterior annulus, nucleus, and posterior annulus. The posterior longitudinal ligament was removed as were the posterior osteophytes. Foraminotomies were then accomplished bilaterally. This was done using a high speed ceasar, kerrison rongeurs and curretes Once all of this was accomplished, the curved currette was used to check for any residual co mpression. The central canal was wide open as were the foramen. A high-speed bur was used to remove the cartilaginous endplates above and below the interspace. Bleeding cancellous bone was exposed. The disc space were measured and appropriate size cage were placed sterilely onto the field. Allograft graft was packed into the cages. The cage was then placed and there was good juxtaposition against the bleeding decorticated surfaces and good distraction of each interspace. The appropriate size anterior cervical locking plate was chosen and bent into gentle lordosis. Two screws were then placed into each of the vertebral bodies at C5-7. There was excellent purchase. A final x-ray was done confirming good position of the hardware and Cages. The locking screws were then applied, also with excellent purchase. Following a final copious irrigation, there was good hemostasis and no dural leaks. The carotid pulse was strong. The wounds were then closed in layers using 2-0 Vicryl suture for the platysma muscle, 2-0 Vicryl suture for the subcutaneous tissue, and 4-0 monocryl suture in a subcuticular skin closure. Glue was placed followed by application of a sterile dressing. The drain was h ooked to bulb suction. A soft collar was applied. The patient was then carefully returned to the supine position on his hospital bed where he was reversed and extubated and taken to the recovery room having tolerated the procedure well.
--- NOTE | 2020-06-15 10:41 | SUR.PHASEI ---
1030 DR SAINI AT BEDSIDE PT UP AT 45 DEGREES GOOD RESP EFFORT, LUNGS CLEAR TO INSP BUT EXP WHEEZE SCATTERED EARLIER SEE ALBUTEROL NEB GIVEN PT AWAKE HELLPED PULL SELF UP IN BED HOB AT 45 PT SATS STILL 89-90 ON 4LNC PT BACK ON MASK AT 6L SAT UP TI 92% PT OK TO GO TO OPS ON 6LMASK PER DR SCHROEDER AND GET UP TO BSC.
--- NOTE | 2020-06-15 11:11 | XR_ITS ---
WS: [id number] Exam: XR chest 1V portable [id number] Date/Time of Exam: 06/15/2020 11:11 AM Reason For Exam: POST OP DECREASED O2 SATS The lungs are clear and fully expanded. Normal cardiomediastinal structures and bony elements. There is hardware in the lower cervical spine. XR/XR chest 1V portable [id number] IMPRESSION: 1. No acute cardiopulmonary finding.
[2020-06-15 11:29] LABS: ABG PCO2 40.4 mmHg (35-45); ABG PH Result 7.33 (7.35-7.45); Arterial Blood Gas Hematocrit 46.6 % (37-47); Base Excess ABG -4.1 mmol/L (-2.0-2.0); Blood Gas Allen Test Pos; Blood Gas Operator Identificat MONRO; Blood Gas Sample Site Radial, right; Blood Gas Sample Type Arterial; HCO3 ABG 21.5 mmol/L (22-26); Oxygen Device SIMPLE MASK; PO2 ABG 67.9 mmHg (80.0-100.0)
[2020-06-15] MEDS: FUROsemide 10 mg/mL SDV 4mL 40 MG IVP (11:30)
--- NOTE | 2020-06-15 11:30 | SUR.PHASEII ---
PATIENT RE-EVALUATED BY DOCTOR ELDA. CXR AND ABG'S DONE. COLLAR FITTED BY PHYSCICAL THERAPY. IV MED GIVEN. PATIENT STATES SHE FEELS BETTER.
--- NOTE | 2020-06-15 11:30 | SUR.PHASEI ---
1049 PT LUNGS AFTER ALBUTEROL WERE CLEAR WITH SCATTERED EXP WHEEZE TO LT UPPER LOBES SLIGHTLY DIMINISHED BASES, PT TO OPS AND REMAINS ON 6LMASK PT UP TO BSC PT STRONG ON HER FEET, VOIDED EASILY IN COMMODE AND PT THEN ASSISTED BACK TO BED 1100 LUNG ASSESSED BY OPS RN PT NOW HAS CRACKLES TO POSTERIOR LT LOBES DR SCHROEDER NOTIFIED 1110 ORDERS RECIEVED TO GET CXR PORTABLE AND ABGS NOW AND GIVE PT 40MG IVP LASIX.GEORGE ROBISON UPDATED OF ALL OF THE ABOVE. PT AWKE ALERT AND TAKING OCC ICE CHIP, PT HERE TO FIT PT'S COLLAR ORDERED.
[2020-06-15] MEDS: ondansetron 2 mg/ML SDV 2 mL 4 MG IVP (12:49)
--- NOTE | 2020-06-15 13:11 | SUR.PHASEII ---
PATIENT WITH RELIEF OF NAUSEA. PLACED BACK ON O2 AT 5L/M VIA SIMPLE MASK. GOOD URINE OUTPUT. BILATERAL EXPIRATORY RHONCHI NOTED.
--- NOTE | 2020-06-15 13:25 | SUR.PHASEII ---
DOCTOR SCHROEDER INFORMED OF PATIENTS STATUS.
[2020-06-15] MEDS: dexamethasone 4 mg/mL INJ 8 MG IVP (13:52)
--- NOTE | 2020-06-15 14:54 | SUR.PHASEII ---
REPORT TO Ricky ROBISON.
[2020-06-15] MEDS: lactated ringers 1,000 ML 90 ML IV (17:02)
--- NOTE | 2020-06-15 17:13 | ECG_ITS ---
[facility] ED Test Date: 2020-06-15 Pat Name: Lauren Underwood Department: Room: 271 Gender: Female Physician Chief Of Pathology: : 1975 Requested By: Abran Gipson Order Number: [id number] Motta MD: Clare Horne M.D. Measurements Intervals [place] Rate: 100 P: 56 NH: 138 QRS: 72 QRSD: 67 T: 46 QT: 336 QTc: 435 Interpretive Statements SINUS TACHYCARDIA ABNORMAL RHYTHM ECG No previous ECG available for comparison Electronically Signed On 06-16-2020 17:50:18 CDT by Clare Horne M.D. [id number]
--- NOTE | 2020-06-15 17:14 | P.CONIM_ITS ---
Providers/Reason For Consult Consulting Physican/Specialty*: Orthopedics Reason for Consult*: Ac Hypoxic R/F Attending Physician: Carlos Mckeon DO Primary Care Provider: ISAEL Blanchard History of Present Illness History of Present Illness Lauren Underwood is a 44 year old female with past medical history of hypertension, diabetes , was admitted under orthopedic service for management of cervical spondylosis with radiculopathy, s/p Anterior diskectomy C5/6/7. Medicine was consulted as the patient was hypoxic postprocedure. When I examined the patient in the room, she was complaining of right- sided,chest pain as well as neck pain.She is also complaining of recent onset shortness of breath with exertion.She has been a long smoker, started smoking at age 19, currently smokes half a pack of cigarettes a day. She denies any cough, fever, sick contact, nausea, vomiting, palpitation. ABG obtained postprocedure: Ph : 7.34, PCO2 : 40 , PO2 : 67, FiO2: 46 % X-ray chest:No acute cardiopulmonary finding. Review of Systems Const: Denies: fever(s), chills, body aches, change in appetite or diaphoresis Card: Denies: palpitations or leg pain with exertion GI: Denies: abdominal pain, nausea, vomiting, diarrhea or constipation : Denies: flank pain Musc: Denies: back pain, extremity pain or extremity swelling Neuro: Denies: headache(s), difficulty walking or confusion Meds/Allergies Home Medications and Allergies Home Medications Medication Instructions Recorded Confirmed Last Taken Type blood sugar diagnostic #50 each 04/22/19 06/11/20 Unknown Rx pen needle, diabetic 31 gauge x #30 each 04/22/19 06/11/20 Unknown Rx 1/4 fluticasone propionate 50 1 spray INTRANASAL DAILY #15.8 ml 01/09/20 06/15/20 Unknown Rx mcg/actuation nasal spray,suspension paroxetine HCl 40 mg tablet 40 mg PO QAM #30 tab 03/24/20 06/15/20 Unknown Rx albuterol sulfate 90 mcg/actuation 2 puff INHALATION Q6H PRN #18 g 04/10/20 06/15/20 Unknown Rx aerosol inhaler glipizide 10 mg tablet, extended 10 mg PO DAILY #30 tab 04/10/20 06/15/20 Unknown Rx release 24 hr liraglutide 0.6 mg/0.1 mL (18 mg/3 1.8 mg SUBCUT Q24H #9 ml 04/10/20 06/15/20 06/15/20 Rx mL) subcutaneous pen injector lisinopril 10 mg tablet 10 mg PO DAILY 30 Days #30 tab 04/10/20 06/15/20 Unknown Rx naproxen 500 mg tablet 500 mg PO BID #60 tab 04/16/20 06/15/20 Unknown Rx aripiprazole 5 mg PO BEDTIME 06/08/20 06/15/20 Unknown History cetirizine [Zyrtec] 10 mg PO DAILY PRN 06/08/20 06/15/20 Unknown History ergocalciferol (vitamin D2) 50,000 unit PO DAILY 06/08/20 06/15/20 Unknown History eszopiclone [Lunesta] 2 mg PO BEDTIME PRN 06/08/20 06/15/20 Unknown History gabapentin 600 mg PO TID PRN 06/08/20 06/15/20 Unknown History prazosin 5 mg PO BEDTIME 06/08/20 06/15/20 Unknown History tizanidine 4 mg tablet 4 mg PO BID PRN #60 tab 06/11/20 06/15/20 Unknown Rx hydrocodone-acetaminophen 1 - 2 tab PO .Q4-6H #40 tab 06/15/20 Unknown Rx Allergies Allergy/AdvReac Type Severity Reaction Status Date / Time meperidine [From Demerol] Allergy Mild swelling Verified 06/11/20 13:50 and itching Current Medications Current Medications Generic Name Dose Route Start Last Admin Trade Name Freq PRN Reason Stop Dose Admin Lactated Ringer's 1,000 mls @ 90 mls/hr 06/15/20 13:45 06/15/20 17:02 Lactated Ringers IV 90 mls/hr .Q11H7M JT Administration Cefazolin Sodium/Dextrose 2 gm in 50 mls @ 100 mls/hr 06/15/20 15:00 06/15/20 17:03 Kefzol IV 06/16/20 07:29 100 mls/hr Q8H JT Administration Protocol PFSH Acute PFSH: Medical History (Updated 06/15/20 @ 17:32 by Abran Gipson MD) Chronic post-traumatic stress disorder (PTSD) Essential hypertension History of hysteroscopy (~07/09/19) Hysteroscopy with endometrial ablation with NovaSure with Dr. Brito at [facility] Hypothyroidism (acquired) Major depressive disorder, recurrent, moderate Panic disorder Type 2 diabetes mellitus Vitamin D deficiency Surgical History History of section x 3. History of cholecystectomy (~2001) History of dilatation and curettage (~2008) History of hernia repair (~2012) History of tubal ligation History of ventricular septal defect repair (~1992) age 17 Family History Mother Hypertension Hyperlipidemia Thyroid disease Father Hypertension Hyperlipidemia Heart disease Brother Thyroid disease Grandmother Cancer Maternal grandmother--cervical cancer, ovarian cancer Paternal grandmother--cervical cancer Diabetes Paternal grandmother Maternal grandmother Other Major depressive disorder, recurrent, moderate Social History Smoking and tobacco status: current every day smoker cigarettes Packs smoked per day: 1 Years cigarettes smoked: 20 Quit status (tobacco): has tried quititng Second hand smoke exposure: No Smoking risk assessment/counseling performed?: No Alcohol intake: current Alcohol intake frequency: few times a month Alcohol type: beer Desire information about substance/drug rehabilitation?: No Adopted: No Caregiver/support person: No Lives independently: Yes Household members: significant other and children Housing: Manufactured/Mobile home Marital status: Number of children: 3 Number of grandchildren: 1 Highest education level completed: High School Graduate service: No Current occupational status: disabled Pets and animals: Yes Pets & animals: dog(s) History of recent travel: No Leisure activites: fishing, reading and other Leisure activities details: shaggy, camping, coloring Sexually active: Yes Current gender identity: Female Lisa/Restorationist: Faith Special lisa needs: No Agree to transfusion: Yes Financial difficulty paying for basics: Not Very Hard Female Reproductive History: Date of last menstrual period: 09/09/19 Para: 3 Spontaneous abortions: Yes Vitals/I&O/Wt Last Vital Signs Temp 98.6 F 06/15/20 16:10 Pulse 100 06/15/20 16:10 Resp 18 06/15/20 16:10 BP 151/85 04/26/21 16:10 Pulse Ox 91 06/15/20 16:10 06/15/20 06/15/20 06/15/20 06:59 14:59 22:59 Intake Total 50 / 50 1000 / 1050 Output Total 1949 Balance -1900 / -1900 1000 / -900 Physical Exam Const: COMMON NORMALS: patient oriented x3 HENMT: COMMON NORMALS: normocephalic and atraumatic HEAD & SCALP: normocephalic and atraumatic OTHER: Neck Collar Present Chest: CHEST: Yes Symmetrical chest wall rise Resp: COMMON NORMALS: normal respiratory effort, No retractions, No use of accessory muscles and clear to auscultation bilaterally EFFORT & INSPECTION: Yes symmetric chest movement AUSCULTATION: clear to auscultation bilaterally Cardio: COMMON NORMALS: regular rate, regular rhythm, S1 normal heart sound present, S2 normal heart sound present, No gallops present (Cardio), No murmurs present (Cardio), No rub (Cardio) and Peripheral pulses 2+ throughout RATE: regular rate RHYTHM: regular rhythm HEART SOUNDS: S1 normal heart sound present and S2 normal heart sound present PERIPHERAL PULSES: Peripheral pulses 2+ throughout GI: COMMON NORMALS: Normal to inspection, nondistended, normoactive bowel sounds present, Soft to palpation, non-tender, No hepatosplenomegaly present and no masses AUSCULTATION: Yes normoactive bowel sounds PALPATION: Yes Soft to palpation and Yes No hepatosplenomegaly present RECTAL EXAM: deferred Extremity: COMMON NORMALS: no clubbing, cyanosis or edema and no pedal edema Neuro: COMMON NORMALS: patient oriented x3 A&P Assessment and plan (1) Postoperative hypoxia: Currently she is saturating well on 2ls Oxygen.Will plan to titrate down as the patient is not on home oxygen. Incentive Spirometry. DUO Nebs PRN Am Labs Status: Acute (2) Essential hypertension: Continue Lisnopril 10 MG PO Daily Status: Acute (3) Diabetes: LDSSI FSG Carbohydrate Consistent diet Status: Acute Qualifiers: Diabetes mellitus type: type 2 Diabetes mellitus terminal operations supervisor insulin use: without terminal operations supervisor use Diabetes mellitus complication status: without co mplication Qualified Code(s): E11.9 - Type 2 diabetes mellitus without complications Consult Attestations Medical Necessity Statement: Per Primary Team Coding Level of Care Code Acute Paint Roller Winder for Chg Fwd Diagnoses Postoperative hypoxia R09.02; Z98.890 Essential hypertension I10 Diabetes E11.9 Diabetes mellitus type: type 2 Diabetes mellitus detention insulin use: without terminal operations supervisor use Diabetes mellitus complication status: without complication
[2020-06-15] MEDS: docusate sodium 100 mg Capsule PO (18:52)
[2020-06-15 18:58] LABS: Glucose Point of Care 311 mg/dL (70-110)
[2020-06-15] MEDS: ARIPiprazole 10 mg Tablet 5 MG PO (20:21)
[2020-06-15] MEDS: prazosin 5 mg Capsule PO (20:21)
[2020-06-15] MEDS: HYDROcodone-acetaminophen 5-325 mg Tablet PO (20:22)
[2020-06-15 20:46] LABS: Glucose Point of Care 319 mg/dL (70-110)
[2020-06-16 03:08] LABS: Basophils % 0.2 %; Eosinophils % 0.1 %; Hematocrit 41.9 % (37.0-47.0); Lymphocytes % 7.1 %; Mean Corpuscular HGB Conc 33.4 g/dL (30.0-36.0); Mean Corpuscular Volume 86.7 fL (81-99); Mean Platelet Volume 10.3 fL (7.4-10.4); Monocytes # 0.4 10^3/uL (0.2-0.9); Monocytes % 2.9 %; Neutrophils # 12.56 10^3/uL (1.8-7.7); Neutrophils % 89.3 %; Nucleated Red Blood Cells % 0 %; Platelet Count 349 10^3/cmm (130-400); Red Blood Count 4.83 10^6/uL (4.1-5.3); Red Cell Distribution Width 12.8 % (12.1-15.1); White Blood Count 14.1 10^3/uL (4.0-10.0)
[2020-06-16 03:19] LABS: Alanine Aminotransferase 8 U/L (0-33); Albumin Level 3.7 g/dL (3.5-5.2); Alkaline Phosphatase 107 IU/L (35-105); Anion Gap 15.5 (5-19); Aspartate Amino Transferase 13 U/L (0-32); Blood Urea Nitrogen 10 mg/dL (6-20); Calcium 8.3 mg/dL (8.5-10.5); Carbon Dioxide 23 mmol/L (22-29); Chloride 100 mmol/L (98-107); Globulin 2.8 g/dL (1.3-4.6); Glomerular Filtration Rate 109.1 mL/min (90-130); Glucose 237 mg/dL (65-115); Osmolality Calculated 285 mOsm/kg (285-295); Potassium 4.5 mmol/L (3.5-5.1); Sodium 134 mmol/L (136-145); Total Bilirubin 0.4 mg/dL (0.15-1.2); Total Protein 6.5 g/dL (6.6-8.7)
[2020-06-16] MEDS: lactated ringers 1,000 ML 90 ML IV (04:07)
[2020-06-16] MEDS: HYDROcodone-acetaminophen 5-325 mg Tablet PO ×2 (04:14→14:51)
[2020-06-16 05:44] VITALS: BP 121/78; PULSE 111; RESP 18; TEMP 37; O2SAT 94
[2020-06-16 05:55] VITALS: TEMP 37
[2020-06-16] MEDS: enoxaparin 40 mg/0.4 mL Syringe SUBCUT (06:05)
[2020-06-16] MEDS: PARoxetine 20 mg Tablet 40 MG PO (06:06)
[2020-06-16 06:35] LABS: Glucose Point of Care 250 mg/dL (70-110)
--- NOTE | 2020-06-16 07:58 | PM.DCS ---
Discharge Providers Date of Admission: 06/15/20 14:12 Date of Discharge: June 16, 2020 Attending Provider at Admission: Carlos Mckeon DO Attending Provider at Discharge: Carlos Mckeon DO Primary Care Provider: ISAEL Blanchard Diagnoses at Discharge Discharge Diagnosis (1) Postoperative hypoxia: Status: Acute (2) Essential hypertension: Status: Acute (3) Diabetes: Status: Acute Qualifiers: Diabetes mellitus type: type 2 Diabetes mellitus exterminator helper termite insulin use: without senior living use Diabetes mellitus complication status: without complication Qualified Code(s): E11.9 - Type 2 diabetes mellitus without complications Reason for Visit Reason for Visit: C 06/25 07/27 ACDF [id number], [id number], 73611, [id number], [id number] Physical Exam Narrative: EXAM NARRATIVE: sitting in bed with nasal canula in rest ing comfortably Discharge Data Data Completed and Pending: Completed Studies During Hospitalization Category Date Time Status CXRP [XR chest 1V portable 07228] R outine Exams 06/15/20 11:11 Completed Labs from last 24 hours 06/16/20 06/16/20 06/16/20 06:16 02:35 02:35 WBC 14.1 H RBC 4.83 Hgb 14.0 Hct 41.9 MCV 86.7 MCH 29.0 MCHC 33.4 RDW 12.8 Plt Count 349 MPV 10.3 Neut % (Auto) 89.3 Lymph % (Auto) 7.1 [place] % (Auto) 2.9 Eos % (Auto) 0.1 Baso % (Auto) 0.2 Neut # (Auto) 12.56 H Lymph # (Auto) 1.0 [place] # (Auto) 0.4 Eos # (Auto) 0.0 Baso # (Auto) 0.0 Nucleated RBC % (a uto) 0 Nucleated RBCs # 0.0 Specimen Type Sample Site ABG pH ABG pCO2 ABG pO2 ABG HCO3 ABG Base Excess Tobias Test Hematocrit O2 Delivery Device O2 Liters/Min FiO2 Furniture Sprayer ID Sodium 134 L Potassium 4.5 Chloride 100 Carbon Dioxide 23 Anion Gap 15.5 BUN 10 Creatinine 0.6 GFR Calculation 109.1 Glucose 237 H POC Glucose 250 H Calculated Osmolal ity 285 Calcium 8.3 L Total Bilirubin 0.4 AST 13 ALT 8 Alkaline Phosphata se 107 H Total Protein 6.5 L Albumin 3.7 Globulin 2.8 06/15/20 06/15/20 06/15/20 20:41 18:54 11:15 WBC RBC Hgb Hct MCV MCH MCHC RDW Plt Count MPV Neut % (Auto) Lymph % (Auto) [place] % (Auto) Eos % (Auto) Baso % (Auto) Neut # (Auto) Lymph # (Auto) [place] # (Auto) Eos # (Auto) Baso # (Auto) Nucleated RBC % (a uto) Nucleated RBCs # Specimen Type Arterial Sample Site Radial, right ABG pH 7.33 L ABG pCO2 40.4 ABG pO2 67.9 L ABG HCO3 21.5 L ABG Base Excess -4.1 L Tobias Test Pos Hematocrit 46.6 O2 Delivery Device Simple mask O2 Liters/Min 7.0 FiO2 46.0 Furniture Sprayer ID [place] Sodium Potassium Chloride Carbon Dioxide Anion Gap BUN Creatinine GFR Calculation Glucose POC Glucose 319 H 311 H Calculated Osmolal ity Calcium Total Bilirubin AST ALT Alkaline Phosphata se Total Protein Albumin Globulin Vitals: Last Vital Signs Temp 98.6 F 06/16/20 05:55 Pulse 111 H 06/16/20 05:44 Resp 18 06/16/20 05:44 BP 121/78 06/16/20 05:44 Pulse Ox 94 06/16/20 05:44 Discharge Plan Discharge Patient Disposition: Home Condition: Stable Prescriptions: New hydrocodone-acetaminophen 5-325 mg tablet 1 - 2 tab PO .Q4-6H Qty: 40 RF: 0 Continued paroxetine HCl 40 mg tablet 40 mg PO QAM Qty: 30 RF: 1 (DME) Blood Glucose Test Strip See Rx Instructions .ROUTE .MEDSUPPLY Qty: 50 RF: 5 (DME) pen needle, diabetic [1st Tier Unifine Pentips] 31 gauge x 1/4 needle See Rx Instructions .ROUTE .MEDSUPPLY Qty: 30 RF: 6 fluticasone propionate [Flonase Allergy Relief] 50 mcg/actuation spray,suspension 1 spray intranasal DAILY Qty: 15.8 RF: 11 naproxen 500 mg tablet 500 mg PO BID Qty: 60 RF: 2 tizanidine 4 mg tablet 4 mg PO BID PRN (Reason: muscle spasticity) Qty: 60 RF: 1 glipizide 10 mg tablet extended release 24hr 10 mg PO DAILY Qty: 30 RF: 2 Victoza 3-Ky 0.6 mg/0.1 mL (18 mg/3 mL) pen injector 1.8 mg SUBCUT Q24H Qty: 9 RF: 2 lisinopril 10 mg tablet 10 mg PO DAILY 30 Days Qty: 30 RF: 2 albuterol sulfate [ProAir HFA] 90 mcg/actuation HFA aerosol inhaler 2 puff inhalation Q6H PRN (Reason: shortness of breath or wheezing) Qty: 18 RF: 1 gabapentin 600 mg tablet 600 mg PO TID PRN (Reason: nerve pain) RF: 0 cetirizine [Zyrtec] 10 mg tablet 10 mg PO DAILY PRN (Reason: Allergy Symptoms) RF: 0 prazosin 5 mg capsule 5 mg PO BEDTIME RF: 0 ergocalciferol (vitamin D2) 1,250 mcg (50,000 unit) capsule 50,000 unit PO DAILY RF: 0 aripiprazole 5 mg tablet 5 mg PO BEDTIME RF: 0 eszopiclone [Lunesta] 2 mg tablet 2 mg PO BEDTIME PRN (Reason: insomnia) RF: 0 Discharge Orders: Discharge Order (Routine); Ordered 06/15/20 Ordered By: Carlos Mckeon Referrals: Carlos Mckeon, [Physician] - 06/30/20 2:15 pm Discharge Diet: Advance as tolerated Discharge Activity: Limit activity as instructed Activity Restrictions/Additional Instructions: Thank you for choosing [facility] for your care! The following is a list of instructions, from your provider, to follow upon your discharge to ensure you have the optimal recovery from your recent injury or surgery. Anterior Cervical Discectomy and Fusion: What to Expect at Home Your Recovery Follow-up care is a ace part of your treatment and safety. Be sure to make and go to all appointments, and call your doctor if you are having problems. If you do not already have a follow-up appointment made, call office in the next 1-3 days to make follow up appointment for 2 weeks at [phone]. It is also a good idea to know your test results and keep a list of the medicines you take. You can expect your neck to feel stiff or sore after surgery. This should improve in the weeks after surgery. But it may take 4 to 6 months for you to get better completely. You may have trouble sitting or standing in one position for very long and may need pain medicine in the weeks after your surgery. It may take 4 to 6 weeks to get back to your usual activities, but it may depend on what kind of surgery you had. Your throat will feel sore and it may be difficult to swallow for the first 3 days after your surgery. As long as you can get liquids down without difficulty, this should slowly improve, otherwise call our office or seek medical attention if it becomes increasingly difficult to get anything down including liquids. Avoid hot liquids for first 3-5 days. Soothing foods/liquids such as jello, pudding, and luke warm soups are recommended until swallowing improves. Staying elevated will also help, it's advised you keep propped up at while sleeping to help reduce the swelling. You may use an ice pack directly on your incision or around it on the front of your neck, using a cloth to protect your skin; and a heating pad to the back of your neck as needed. Do not use over the counter anti-inflammatory medications (Ibuprofen, Motrin, Aleve, Advil, etc) Taking these meds after having a fusion can delay fusion rates, we recommend you avoid them for the first 3 months after your surgery[address] Dr. Mckeon may advise you to work with a physical therapist to strengthen the muscles around your neck and back - this will be discussed at your follow - up appointments. The pain or numbness you were having in your arms before surgery should get better or go away completely. This care sheet gives you a general idea about how long it will take for you to recover. But each person recovers at a different pace. Follow the steps below to get better as quickly as possible. How can you care for yourself at home? Activity ? Rest when you feel tired. Getting enough sleep will help you recover. ? Try to walk each day. Start by walking a little more than you did the day before. Bit by bit, increase the amount you walk. Walking boosts blood flow and helps prevent pneumonia and constipation. Walking may also decrease your muscle soreness after surgery. ? No lifting anything that is more that 5 pounds. This may include heavy grocery bags and milk containers, a heavy briefcase or backpack, cat litter or dog food bags, a child, or a vacuum delta system freight car cleaner. ? Avoid strenuous activities, such as bicycle riding, jogging, weightlifting, or aerobic exercise, until your doctor says it is okay. ? Do not drive until your follow-up visit after your surgery, or until your doctor says it isokay. ? Avoid taking long car trips for 2 to 4 weeks after surgery. Your neck may become tired and painful from sitting too long in one position. ? You will probably need to take 4 to 6 weeks off from work. It depends on the type of work you do and how you feel. ? You may have sex as soon as you feel able, but avoid positions that put stress on your neck or cause pain. Diet ? You can eat your normal diet. If your stomach is upset, try bland, low-fat foods like plain rice, broiled chicken, toast, and yogurt ? Drink plenty of fluids. If you have kidney, heart, or liver disease and have to limit fluids, talk with your doctor before you increase the amount of fluids you drink. ? You may notice that your bowel movements are not regular right after your surgery. This is common. Try to avoid constipation and straining with bowel movements. You may want to take a fiber supplement every day. If you have not had a bowel movement after a couple of days, ask your doctor about taking a mild laxative. Medicines ? Take pain medicines exactly as directed. 1. If Dr. Mckeon gave you a prescription medicine for pain, take lt as prescribed. 2. Do not take two or more pain medicines at the same time unless the doctor told you to. Many pain medicines have acetaminophen, which is Tylenol. Too much acetaminophen {Tylenol) can be harmful. 3. If you think your pain pill is making you sick to your stomach: 4. Take your pills after meals (unless your doctor has told you not to). 5. Ask your Dr. for a different pain pill. Incisioncare ? Remove your dressing 48hours after your surgery. Ok to shower and get the incision wet. Do not overtly wash your incision. When done, pad dry, leave open to air thereafter. Avoid creams and ointments directly on your incision. ? Your sutures in the incision will dissolve and fall out on their own. ? Keep the area clean and dry. You may cover it with a gauze bandage if it weeps or rubs against clothing; if you choose to do this, change the dressing everyday. Other instructions ? Use a heating pad, hot water bottle, or gentle massage on your back to reduce stiffness. Avoid putting heat on your incision When should you call for help? ? Call 911 anytime you think you may need emergency care. For example, call if: ? You pass out (lose consciousness). ? You have sudden chest pain and shortness of breath, or you cough upblood. ? You cannot swallow. ? You have severe pain in your neck or back. ? Call your Dr. or seek immediate medical care if: ? You have pain that does not get better after you take pain pills. ? You have loose stitches, or your incision comes open. ? You have blood or fluid draining from the incision. ? You have signs of infection, such as: 1. Increased pain, swelling, warmth, or redness. 2. Red streaks leading from the site. 3. Pus draining from the site. 4. Swollen lymph nodes in your neck or armpits. 5. A fever. ? You have severe pain in your arms. ? You have new or increased weakness or numbness in your arms. ? Watch closely for any changes in your health, and be sure to contact your doctor if: ? You do not have a bowel movement after taking a laxative. Discharge Attestations Time Spent in Discharge Care*: less than 30 min Quality Metrics Clinical Quality Measures During this hospital stay, did patient experience: None Coding Level of Care Code Acute Chg FW DC note Diagnoses Postoperative hypoxia R09.02; Z98.890 Essential hypertension I10 Diabetes E11.9 Diabetes mellitus type: type 2 Diabetes mellitus exterminator helper termite insulin use: without exterminator helper termite use Diabetes mellitus complication status: without complication
[2020-06-16 08:07] VITALS: PULSE 89; RESP 18; O2SAT 95
[2020-06-16] MEDS: lisinopril 10 mg Tablet PO (08:13)
[2020-06-16] MEDS: docusate sodium 100 mg Capsule PO (08:13)
[2020-06-16 08:18] VITALS: BP 122/75; PULSE 110; RESP 18; TEMP 37; O2SAT 95
[2020-06-16 11:09] LABS: Glucose Point of Care 257 mg/dL (70-110)
[2020-06-16 11:23] VITALS: BP 139/76; PULSE 112; RESP 18; TEMP 36.9; O2SAT 92
--- NOTE | 2020-06-16 11:52 | PC.NURSE ---
OXYGEN 0900 PT TAKEN TO 1LNC PER ENRIQUETA BRODERICK - SATS REMAIN 94-96% 1030 PT TAKEN OFF OXYGEN TO ROOM AIR - RECHECK OF SATS SHOW SATS RANGING FROM 92-95% RESTING AND WITH AMBULATION PER THIS NURSE
--- NOTE | 2020-06-16 13:37 | P.PN_ITS ---
Subjective Subjective: Interval history: No acute event overnight. Vitals and labs have been reviewed. SOB and chest pain has resolved. Vitals/I&O/Wt Last Vital Signs Temp 98.5 F 06/16/20 11:23 Pulse 112 H 06/16/20 11:23 Resp 18 06/16/20 11:23 BP 139/76 06/16/20 11:23 Pulse Ox 92 06/16/20 11:23 06/15/20 06/16/20 06/16/20 22:59 06:59 14:59 Intake Total 1530 / 1580 1047.5 / 2627.5 240 / 240 Output Total 650 / 2600 120 / 2720 Balance 880 / -1020 927.5 / -92.5 240 / 240 Physical Exam Const: COMMON NORMALS: patient oriented x3 HENMT: COMMON NORMALS: normocephalic and atraumatic HEAD & SCALP: normocephalic and atraumatic OTHER: Neck Collar Present Chest: CHEST: Yes Symmetrical chest wall rise Resp: COMMON NORMALS: normal respiratory effort, No retractions, No use of accessory muscles and clear to auscultation bilaterally EFFORT & INSPECTION: Yes symmetric chest movement AUSCULTATION: clear to auscultation bilaterally Cardio: COMMON NORMALS: regular rate, regular rhythm, S1 normal heart sound present, S2 normal heart sound present, No gallops present (Cardio), No murmurs present (Cardio), No rub (Cardio) and Peripheral pulses 2+ throughout RATE: regular rate RHYTHM: regular rhythm HEART SOUNDS: S1 normal heart sound present and S2 normal heart sound present PERIPHERAL PULSES: Peripheral pulses 2+ throughout GI: COMMON NORMALS: Normal to inspection, nondistended, normoactive bowel sounds present, Soft to palpation, non-tender, No hepatosplenomegaly present and no masses AUSCULTATION: Yes normoactive bowel sounds PALPATION: Yes Soft to palpation and Yes No hepatosplenomegaly present RECTAL EXAM: deferred Extremity: COMMON NORMALS: no clubbing, cyanosis or edema and no pedal edema Neuro: COMMON NORMALS: patient oriented x3 Data : 06/16/20 02:35 06/16/20 02:35 A&P Assessment and plan (1) Postoperative hypoxia: Currently she is saturating well on R/A . Incentive Spirometry. DUO Nebs PRN Status: Acute (2) Leukocytosis: Likely reactive.No concern for infection. Status: Acute (3) Essential hypertension: Continue Lisnopril 10 MG PO Daily Status: Acute (4) Diabetes: LDSSI FSG Carbohydrate Consistent diet Status: Acute Qualifiers: Diabetes mellitus type: type 2 Diabetes mellitus custodial insulin use: without chief building inspector use Diabetes mellitus complication status: without complication Qualified Code(s): E11.9 - Type 2 diabetes mellitus without complications Attestations Medical Necessity Statement*: Per primary team Coding Level of Care Code Acute Body Technician/Painter for [facility] Fwd Diagnoses Postoperative hypoxia R09.02; Z98.890 Leukocytosis D72.829 Essential hypertension I10 Diabetes E11.9 Diabetes mellitus type: type 2 Diabetes mellitus custodial insulin use: without chief building inspector use Diabetes mellitus complication status: without complication
[2020-06-16 15:45] VITALS: BP 139/76; PULSE 112; RESP 18; TEMP 36.9; O2SAT 92
--- NOTE | 2020-06-17 16:57 | PC.RESP ---
Smoking Cessation information sent to patient.
== END 2020-06-16 15:45 | disposition home or self-care (01) ==
LOC: MEDSURG 14:12
PROVIDERS: Anesthesiology Pain Medicine; Internal Medicine; Admitting Provider Orthopaedic Surgery; PCP Nurse Practitioner Family; Visit Provider Orthopaedic Surgery
PROC: 0RB30ZZ Excision of Cervical Vertebral Disc, Open Approach (ICD-10-PCS; CPT 22551; principal; 2020-06-15 07:00)
DX: M47.22 Other spondylosis with radiculopathy, cervical region (principal); R09.02 Hypoxemia; I10 Essential (primary) hypertension; E11.9 Type 2 diabetes mellitus without complications; D72.829 Elevated white blood cell count, unspecified; E03.9 Hypothyroidism, unspecified; E55.9 Vitamin D deficiency, unspecified; F33.9 Major depressive disorder, recurrent, unspecified; F17.210 Nicotine dependence, cigarettes, uncomplicated; J44.9 Chronic obstructive pulmonary disease, unspecified; K21.9 Gastro-esophageal reflux disease without esophagitis; G89.29 Other chronic pain
CPT/HCPCS: 20930; 22551; 22552; 22845; 22853; 36415; 36416; 36600; 71045; 76000; 80053; 82803; 82962; 84703; 85025; 93005; 96372; 97161; C1713; C9359; G0378; J0330; J0690; J1100; J1650; J1815; J1940; J2405; J2704; J3010; J3490; J7030; J7611; L0174

== ENCOUNTER 2020-06-15 14:15 | Outpatient (CLI) | payer MEDICAID, SELFPAY ==
--- NOTE | 2020-06-15 | XR_ITS ---
WS: [id number] C-ARM RADIOGRAPHS CERVICAL SPINE; 4 IMAGES HISTORY: C 06/25 07/27 ACDF COMPARISON: 12/19/2019 Intraoperative imaging during anterior cervical fusion from C5 through C7 with interbody spacers. XR/XR cervical spine 3V* [id number] IMPRESSION: Intraoperative imaging during anterior cervical fusion.
[2020-12-30 17:04] VITALS: BP 154/90; BMI 41.1
== END 2020-06-15 14:16 | disposition home or self-care (01) ==
LOC: RAD 05-06 14:16
PROVIDERS: PCP Nurse Practitioner Family; Visit Provider Orthopaedic Surgery
DX: Z98.1 Arthrodesis status (principal)
CPT/HCPCS: 72040

== ENCOUNTER → 2020-06-22 08:35 | Outpatient (BNVA) | payer MEDICAID, SELFPAY ==
[2019-12-07 11:25] VITALS: BP 155/93; BMI 43.9
== END ==
PROVIDERS: PCP Nurse Practitioner Family; Visit Provider Nurse Practitioner Psychiatric/Mental Health
DX: F33.1 Major depressive disorder, recurrent, moderate (principal); F43.12 Post-traumatic stress disorder, chronic
CPT/HCPCS: 99213

== ENCOUNTER → 2020-07-30 15:54 | Outpatient (BNVA) | payer MEDICAID, SELFPAY ==
[2019-12-07 11:25] VITALS: BP 155/93; BMI 43.9
== END ==
PROVIDERS: PCP Nurse Practitioner Family; Visit Provider Orthopaedic Surgery
DX: M54.2 Cervicalgia (principal); Z48.89 Encounter for other specified surgical aftercare
CPT/HCPCS: 72040

== ENCOUNTER → 2020-09-02 12:39 | Outpatient (BNVA) | payer MEDICAID, SELFPAY ==
[2019-12-07 11:25] VITALS: BP 155/93; BMI 43.9
== END ==
PROVIDERS: PCP Nurse Practitioner Family; Visit Provider Social Worker
DX: F33.1 Major depressive disorder, recurrent, moderate (principal); F43.12 Post-traumatic stress disorder, chronic; F41.0 Panic disorder [episodic paroxysmal anxiety]
CPT/HCPCS: 90834

== ENCOUNTER → 2020-09-10 15:47 | Outpatient (BNVA) | payer MEDICAID, SELFPAY ==
[2019-12-07 11:25] VITALS: BP 155/93; BMI 43.9
== END ==
PROVIDERS: PCP Nurse Practitioner Family; Visit Provider Orthopaedic Surgery
DX: M54.2 Cervicalgia (principal); Z48.89 Encounter for other specified surgical aftercare; M47.12 Other spondylosis with myelopathy, cervical region; M47.22 Other spondylosis with radiculopathy, cervical region
CPT/HCPCS: 72040

== ENCOUNTER → 2020-09-14 15:53 | Outpatient (BNVA) | payer MEDICAID, SELFPAY ==
[2019-12-07 11:25] VITALS: BP 155/93; BMI 43.9
== END ==
PROVIDERS: PCP Nurse Practitioner Family; Visit Provider Nurse Practitioner Psychiatric/Mental Health
DX: F33.1 Major depressive disorder, recurrent, moderate (principal); F43.12 Post-traumatic stress disorder, chronic
CPT/HCPCS: 99213

== ENCOUNTER → 2020-09-30 11:26 | Outpatient (BNVA) | payer MEDICAID, SELFPAY ==
[2019-12-07 11:25] VITALS: BP 155/93; BMI 43.9
== END ==
PROVIDERS: PCP Nurse Practitioner Family; Visit Provider Nurse Practitioner Psychiatric/Mental Health
DX: F43.12 Post-traumatic stress disorder, chronic (principal)
CPT/HCPCS: 80061; 83036

== ENCOUNTER → 2020-10-07 14:41 | Outpatient (BNVA) | payer MEDICAID, SELFPAY ==
[2020-10-01 09:33] VITALS: BP 154/90; BMI 41.1
== END ==
PROVIDERS: PCP Nurse Practitioner Family; Visit Provider Social Worker
DX: F33.1 Major depressive disorder, recurrent, moderate (principal); F43.12 Post-traumatic stress disorder, chronic; F41.0 Panic disorder [episodic paroxysmal anxiety]
CPT/HCPCS: 90834

== ENCOUNTER → 2020-11-04 13:40 | Outpatient (BNVA) | payer MEDICAID, SELFPAY ==
[2020-10-01 09:33] VITALS: BP 154/90; BMI 41.1
== END ==
PROVIDERS: PCP Nurse Practitioner Family; Visit Provider Social Worker
DX: F33.1 Major depressive disorder, recurrent, moderate (principal); F43.12 Post-traumatic stress disorder, chronic; F41.0 Panic disorder [episodic paroxysmal anxiety]
CPT/HCPCS: 90834

== ENCOUNTER → 2020-11-10 14:57 | Outpatient (BNVA) | payer MEDICAID, SELFPAY ==
[2020-10-01 09:33] VITALS: BP 154/90; BMI 41.1
== END ==
PROVIDERS: PCP Nurse Practitioner Family; Visit Provider Nurse Practitioner Family
DX: E11.9 Type 2 diabetes mellitus without complications (principal); E55.9 Vitamin D deficiency, unspecified
CPT/HCPCS: 80053; 82306; 85025

== ENCOUNTER → 2020-11-19 12:49 | Outpatient (BNVA) | payer MEDICAID, SELFPAY ==
[2020-10-01 09:33] VITALS: BP 154/90; BMI 41.1
== END ==
PROVIDERS: PCP Nurse Practitioner Family; Visit Provider Social Worker
DX: F33.1 Major depressive disorder, recurrent, moderate (principal); F41.0 Panic disorder [episodic paroxysmal anxiety]; F43.12 Post-traumatic stress disorder, chronic
CPT/HCPCS: 90834

== ENCOUNTER → 2020-12-03 11:15 | Outpatient (BNVA) | payer MEDICAID, SELFPAY ==
[2020-10-01 09:33] VITALS: BP 154/90; BMI 41.1
== END ==
PROVIDERS: PCP Nurse Practitioner Family; Visit Provider Social Worker
DX: F33.1 Major depressive disorder, recurrent, moderate (principal); F43.12 Post-traumatic stress disorder, chronic; F41.0 Panic disorder [episodic paroxysmal anxiety]
CPT/HCPCS: 90834

== ENCOUNTER → 2020-12-10 15:14 | Outpatient (BNVA) | payer MEDICAID, SELFPAY ==
[2020-10-01 09:33] VITALS: BP 154/90; BMI 41.1
== END ==
PROVIDERS: PCP Nurse Practitioner Family; Visit Provider Physician Assistant
DX: M47.12 Other spondylosis with myelopathy, cervical region (principal); M47.22 Other spondylosis with radiculopathy, cervical region; Z48.89 Encounter for other specified surgical aftercare
CPT/HCPCS: 72040

== ENCOUNTER → 2020-12-24 11:07 | Outpatient (BNVA) | payer MEDICAID, SELFPAY ==
[2020-10-01 09:33] VITALS: BP 154/90; BMI 41.1
== END ==
PROVIDERS: PCP Nurse Practitioner Family; Visit Provider Social Worker
DX: F33.1 Major depressive disorder, recurrent, moderate (principal); F43.12 Post-traumatic stress disorder, chronic; F41.0 Panic disorder [episodic paroxysmal anxiety]
CPT/HCPCS: 90834

== ENCOUNTER → 2021-01-04 14:50 | Outpatient (BNVA) | payer MEDICAID, SELFPAY ==
[2020-12-30 17:04] VITALS: BP 154/90; BMI 41.1
== END ==
PROVIDERS: PCP Nurse Practitioner Family; Visit Provider Nurse Practitioner Family
DX: Z20.822 Contact with and (suspected) exposure to COVID-19 (principal); J32.9 Chronic sinusitis, unspecified
CPT/HCPCS: 87635

== ENCOUNTER → 2021-01-13 12:09 | Outpatient (BNVA) | payer MEDICAID, SELFPAY ==
[2020-12-30 17:04] VITALS: BP 154/90; BMI 41.1
== END ==
PROVIDERS: PCP Nurse Practitioner Family; Visit Provider Social Worker
DX: F33.1 Major depressive disorder, recurrent, moderate (principal); F43.12 Post-traumatic stress disorder, chronic; F41.0 Panic disorder [episodic paroxysmal anxiety]
CPT/HCPCS: 90834

== ENCOUNTER → 2021-01-26 12:17 | Outpatient (BNVA) | payer MEDICAID, SELFPAY ==
[2020-12-30 17:04] VITALS: BP 154/90; BMI 41.1
== END ==
PROVIDERS: PCP Nurse Practitioner Family; Visit Provider Social Worker
DX: F33.1 Major depressive disorder, recurrent, moderate (principal); F43.12 Post-traumatic stress disorder, chronic; F41.0 Panic disorder [episodic paroxysmal anxiety]
CPT/HCPCS: 90834

== ENCOUNTER → 2021-02-22 08:41 | Outpatient (BNVA) | payer MEDICAID, SELFPAY ==
[2020-12-30 17:04] VITALS: BP 154/90; BMI 41.1
== END ==
PROVIDERS: PCP Nurse Practitioner Family; Visit Provider Nurse Practitioner Family
DX: E11.9 Type 2 diabetes mellitus without complications (principal); E03.9 Hypothyroidism, unspecified; F41.0 Panic disorder [episodic paroxysmal anxiety]; E55.9 Vitamin D deficiency, unspecified; I10 Essential (primary) hypertension
CPT/HCPCS: 80053; 80061; 82306; 83036; 83721; 84443; 85025

== ENCOUNTER → 2021-02-23 12:07 | Outpatient (BNVA) | payer MEDICAID, SELFPAY ==
[2020-12-30 17:04] VITALS: BP 154/90; BMI 41.1
== END ==
PROVIDERS: PCP Nurse Practitioner Family; Visit Provider Social Worker
DX: F33.1 Major depressive disorder, recurrent, moderate (principal); F43.12 Post-traumatic stress disorder, chronic; F41.0 Panic disorder [episodic paroxysmal anxiety]
CPT/HCPCS: 90837; 90834

== ENCOUNTER → 2021-03-31 11:18 | Outpatient (BNVA) | payer MEDICAID, OTHER, SELFPAY ==
[2020-12-30 17:04] VITALS: BP 154/90; BMI 41.1
== END ==
PROVIDERS: PCP Nurse Practitioner Family; Visit Provider Social Worker
DX: F41.0 Panic disorder [episodic paroxysmal anxiety] (principal); F43.12 Post-traumatic stress disorder, chronic; F33.1 Major depressive disorder, recurrent, moderate
CPT/HCPCS: 90837; 90834

== ENCOUNTER → 2021-06-03 12:32 | Outpatient (BNVA) | payer MEDICAID, SELFPAY ==
[2021-05-12 09:50] VITALS: BP 154/90; BMI 41.1
== END ==
PROVIDERS: PCP Nurse Practitioner Family; Visit Provider Nurse Practitioner Family
DX: E03.9 Hypothyroidism, unspecified (principal); I10 Essential (primary) hypertension; E11.9 Type 2 diabetes mellitus without complications; E55.9 Vitamin D deficiency, unspecified
CPT/HCPCS: 80053; 80061; 82043; 82306; 83036; 84443; 85025

== ENCOUNTER → 2021-06-10 13:42 | Outpatient (BNVA) | payer MEDICAID, SELFPAY ==
[2021-05-12 09:50] VITALS: BP 154/90; BMI 41.1
== END ==
PROVIDERS: PCP Nurse Practitioner Family; Visit Provider Physician Assistant
DX: Z47.89 Encounter for other orthopedic aftercare (principal); Z98.890 Other specified postprocedural states; Z98.1 Arthrodesis status; R20.0 Anesthesia of skin; R20.2 Paresthesia of skin; M79.622 Pain in left upper arm
CPT/HCPCS: 72040; 99213; 99999

== ENCOUNTER → 2021-06-22 10:17 | Outpatient (BNVA) | payer MEDICAID, SELFPAY ==
[2021-06-22 09:43] VITALS: BP 154/90; BMI 41.1
== END ==
PROVIDERS: PCP Nurse Practitioner Family; Visit Provider Social Worker
DX: F33.1 Major depressive disorder, recurrent, moderate (principal); F43.12 Post-traumatic stress disorder, chronic; F41.0 Panic disorder [episodic paroxysmal anxiety]
CPT/HCPCS: 90837; 90834

== ENCOUNTER → 2021-06-25 15:03 | Outpatient (BNVA) | payer MEDICAID, SELFPAY ==
[2021-06-25 13:05] VITALS: BP 154/90; BMI 41.1
== END ==
PROVIDERS: PCP Nurse Practitioner Family; Visit Provider Nurse Practitioner Family
DX: R11.2 Nausea with vomiting, unspecified (principal)
CPT/HCPCS: 87400

== ENCOUNTER → 2022-01-27 15:01 | Outpatient (BNVA) | payer MEDICAID, SELFPAY ==
[2021-06-25 13:05] VITALS: BP 154/90; BMI 41.1
== END ==
PROVIDERS: PCP Nurse Practitioner Family; Visit Provider Nurse Practitioner Family
DX: Z20.828 Contact with and (suspected) exposure to other viral communicable diseases (principal)
CPT/HCPCS: 87400

== ENCOUNTER 2022-05-11 10:45 | Inpatient (IN) | payer BC, MEDICAID, SELFPAY ==
[2021-06-25 13:05] VITALS: BP 154/90; BMI 41.1
[2022-05-09 12:10] LABS: Basophils # 0.1 10^3/uL (0.0-0.1); Basophils % 0.6 %; Eosinophils # 0.1 10^3/uL (0.0-0.8); Eosinophils % 1.3 %; Hematocrit 44.5 % (37.0-47.0); Hemoglobin 15.1 g/dL (11.5-15.3); Lymphocytes # 2.7 10^3/uL (0.8-4.8); Lymphocytes % 28.6 %; Mean Corpuscular HGB Conc 33.9 g/dL (30.0-36.0); Mean Corpuscular Hemoglobin 28.9 pg (28.0-34.0); Mean Corpuscular Volume 85.2 fl (81-99); Mean Platelet Volume 10.3 fL (7.4-10.4); Monocytes # 0.5 10^3/uL (0.2-0.9); Monocytes % 5.3 %; Neutrophils # 6.09 10^3/uL (1.8-7.7); Neutrophils % 63.9 %; Nucleated Red Blood Cells % 0 %; Platelet Count 412 10^3/cmm (130-400); Red Blood Count 5.22 10^6/uL (4.1-5.3); Red Cell Distribution Width 12.3 % (12.1-15.1); White Blood Count 9.5 10^3/uL (4.0-10.0)
[2022-05-09 12:15] LABS: Bilirubin Urine Neg (Negative); Blood Urine 3+ (Negative); Ketones Urine 1+ (Negative); Nitrate Urine Negative (Negative); Protein Urine Neg (Negative); Urine Appearance SL Hazy (CLEAR); Urine Color Yellow (Yellow); Urobilinogen Urine Norm (Negative); pH Urine 5 (5-7)
[2022-05-09 12:16] LABS: Add Urine Culture? No; Add Urine Microscopic? YES; Bacteria Urine TRACE /hpf; Glucose Urine UA 2+ (Normal); Leukocyte Esterase Urine Negative (Negative); RBC Urine RARE /hpf (0-2); Squamous Epithelial Cell Urine 0-4 /hpf (0-5); WBC Urine 0-4 /hpf (0-5)
[2022-05-09 12:19] LABS: Alanine Aminotransferase 12 U/L (0-33); Alkaline Phosphatase 76 U/L (35-105); Aspartate Amino Transferase 14 U/L (0-32); Blood Urea Nitrogen 9 mg/dL (6-20); Carbon Dioxide 26 mmol/L (22-29); Chloride 100 mmol/L (98-107); Glomerular Filtration Rate 133.4 mL/min (90-130); Glucose 184 mg/dL (65-115); Osmolality Calculated 281 mOsm/kg (285-295); Sodium 134 mmol/L (136-145); Total Bilirubin 0.6 mg/dL (0.15-1.2)
[2022-05-09 12:48] VITALS: BMI 35.9
--- NOTE | 2022-05-09 13:08 | ANES.PREANE2 ---
Pre-Anesthetic Assessment Height/Weight: Height 1.6 m Weight 92.079 kg Preop Diagnosis: cervical spondylosis with radiculopathy Operation Date: 05/11/22 07:30 Proposed Procedures p Total abdominal hysterectomy, bilateral salpingo-oophorectomy 03799,N93.9,N94.6,R10.2-Patient is allergic to Latex, causes a rash(Not Applicable) - Ryan Petty MD s Salpingo Oophorectomy (Open)(Bilateral) - Ryan Petty MD Familial anesthetic complications: None Social No alcohol and No tobacco Exam alert, oriented x 3, clear to auscultation bilaterally and regular rate & rhythm Airway Mallampati: Class II Dentition: full Pulmonary Asthma CV/HEM Hypertension GI Gastroesophageal Reflux Disease Metabolic Diabetes Mellitus, Morbid Obesity and Thyroid Disease Anesthetic Plan ASA status: 3 Anesthesia: General Risk of > 500 ml blood loss (7ml/kg in children): No Medications/Allergies Home Medications Medication Instructions Recorded Confirmed Last Taken Type naproxen 500 mg tablet 500 mg PO BID #60 tabs 04/16/20 05/09/22 05/08/22 08:00 Rx cetirizine 10 mg tablet (Zyrtec) 10 mg PO DAILY PRN Allergy Symptoms 06/08/20 05/09/22 05/08/22 History albuterol sulfate 90 mcg/actuation 2 puff inhalation Q6H PRN 01/04/21 05/09/22 05/09/22 Rx aerosol inhaler (ProAir HFA) shortness of breath or wheezing #18 grams blood sugar diagnostic (Blood #50 ea 02/26/21 05/09/22 Unknown Rx Glucose Test strips) blood-glucose meter (Blood Glucose #1 ea 02/26/21 05/09/22 Unknown Rx Monitoring kit) fluticasone propionate 50 1 spray intranasal DAILY #15.8 mL 02/26/21 05/09/22 05/08/22 Rx mcg/actuation nasal spray,suspension (Flonase Allergy Relief) lancets 31 gauge #100 ea 02/26/21 05/09/22 Unknown Rx lisinopril 10 mg tablet See Rx Instructions .Route 02/26/21 05/09/22 05/08/22 09:00 Rx .COMPLEX #30 tabs pen needle, diabetic 31 gauge x #100 ea 02/26/21 05/09/22 Unknown Rx / (1st Tier Unifine Pentips) triamcinolone acetonide 0.1 % 1 applic topical BID 14 days #80 05/28/21 05/09/22 04/11/22 Rx topical cream grams insulin detemir U-100 100 unit/mL 20 unit (0.2 mL) SUBCUT DAILY #30 06/09/21 05/09/22 05/08/22 21:30 Rx (3 mL) subcutaneous pen (Levemir mL FlexTouch U-100 Insulin) miconazole nitrate 2 % topical 1 applic topical BID #42.5 grams 09/08/21 05/09/22 03/30/22 Rx cream ciclopirox 0.77 % topical cream 1 applic topical 1XD 12/14/21 05/09/22 05/08/22 History aripiprazole 5 mg tablet 5 mg PO BEDTIME #30 tabs 03/31/22 05/09/22 05/08/22 Rx eszopiclone 2 mg tablet (Lunesta) 2 mg PO BEDTIME PRN insomnia #30 03/31/22 05/09/22 05/08/22 Rx tabs paroxetine HCl 40 mg tablet 40 mg PO QAM #30 tabs 03/31/22 05/09/22 05/08/22 09:00 Rx prazosin 5 mg capsule 5 mg PO BEDTIME #30 caps 03/31/22 05/09/22 03/30/22 Rx ergocalciferol (vitamin D2) 1,250 50,000 unit PO DIRECTED 05/09/22 05/09/22 05/04/22 History mcg (50,000 unit) capsule liraglutide 0.6 mg/0.1 mL (18 mg/3 0.3 mg SUBCUT 2XD 05/09/22 05/09/22 05/08/22 21:30 History mL) subcutaneous pen injector (Victoza 2-Ky) tizanidine 4 mg tablet 4 mg PO DIRECTED PRN muscle 05/09/22 05/09/22 04/27/22 History spasticity Allergies Allergy/AdvReac Type Severity Reaction Status Date / Time meperidine [From Demerol] Allergy Mild swelling Verified 05/09/22 09:28 and itching latex Allergy ALGY-Rash Verified 05/09/22 09:28 [facility] Anesthesia Medical History Chronic post-traumatic stress disorder (PTSD) Essential hypertension Hypothyroidism (acquired) Major depressive disorder, recurrent, moderate Panic disorder Psychiatric care Psychiatric care Type 2 diabetes mellitus Vitamin D deficiency Surgical History H/O neck surgery History of section x 3. History of cholecystectomy (~2001) History of dilatation and curettage (~2008) History of hernia repair (~2012) History of hysteroscopy (~07/09/19) Hysteroscopy with endometrial ablation with NovaSure with Dr. Brito at [facility] History of tubal ligation History of ventricular septal defect repair (~1992) age 17 Family History Mother Hypertension Hyperlipidemia Thyroid disease Father Hypertension Hyperlipidemia Heart disease Brother Thyroid disease Grandmother Cancer Maternal grandmother--cervical cancer, ovarian cancer Paternal grandmother--cervical cancer Diabetes Paternal grandmother Maternal grandmother Other Major depressive disorder, recurrent, moderate Social History Smoking and tobacco status: current every day smoker cigarettes Packs smoked per day: 0.5 Years cigarettes smoked: 20 Quit status (tobacco): has tried quititng Second hand smoke exposure: No Smoking risk assessment/counseling performed?: No Alcohol intake: former Year of sobriety/quit date alcohol: 2020 Former alcohol use details: Patient stated she has not had any in a couple of months. prior 12 pk daily Desire information about alcohol rehabilitation?: No Counseling given: No Desire information about substance/drug rehabilitation?: No Counseling given: No Adopted: No Caregiver/support person: No Lives independently: Yes Household members: significant other and children Housing: Manufactured/Mobile home Marital status: Number of children: 3 Number of grandchildren: 1 Highest education level completed: High School Graduate service: No Current occupational status: disabled Current occupation: applying for disablity Current occupational exposures/hazards: No Pets and animals: Yes Pets & animals: dog(s) History of recent travel: No Leisure activites: reading and other Leisure activities details: shaggy, coloring Sexually active: Yes Current gender identity: Female Lisa/Congregational: [place] Special lisa needs: No Agree to transfusion: Yes Financial difficulty paying for basics: Not Very Hard Female Reproductive History Date of last menstrual period: 04/20/22 Para: 3 Spontaneous abortions: Yes Data Anesthesia 05/09/22 11:30 05/09/22 11:30 Short CBC 05/09/22 Range/Units 11:30 WBC 9.5 (4.0-10.0) 10^3/uL Hgb 15.1 (11.5-15.3) g/dL Hct 44.5 (37.0-47.0) % MCV 85.2 (81-99) fl Plt Count 412 H (130-400) 10^3/cmm Neut % (Auto) 63.9 % Neut # (Auto) 6.09 (1.8-7.7) 10^3/uL BMP 05/09/22 11:30 Sodium 134 L Potassium 4.0 Chloride 100 Carbon Dioxide 26 BUN 9 Creatinine 0.5 Glucose 184 H Calcium 9.0 Liver Function 05/09/22 Range/Units 11:30 Total Bilirubin 0.6 (0.15-1.2) mg/dL AST 14 (0-32) U/L ALT 12 (0-33) U/L Alkaline Phosphatase 76 (35-105) U/L Albumin 4.0 (3.5-5.2) g/dL Urine 05/09/22 Range/Units 11:30 Urine Color Yellow (Yellow) Urine Appearance Sl hazy A (CLEAR) Urine pH 5 (5-7) Ur Specific [place] 1.020 (1.005-1.030) Urine Protein Neg (Negative) Urine Glucose (UA) 2+ H (Normal) Urine Ketones 1+ H (Negative) Urine Nitrate Negative (Negative) Urine Bilirubin Neg (Negative) Ur Leukocyte Esterase Negative (Negative) Urine RBC Rare (0-2) /hpf Urine WBC 0-4 H (0-5) /hpf Blood Bank 05/09/22 11:30 Blood Type O Positive Rho(D) Type Positive Antibody Screen Negative Cardiac Studies: No Data to Display
[2022-05-11] VITALS (23 sets, daily range): BP systolic 104–164; BP diastolic 61–98; PULSE 81–99; RESP 12–18; TEMP 36.3–36.8; O2SAT 90–100
[2022-05-11] MEDS: sodium chloride 0.9% 500 ML IV (06:30)
--- NOTE | 2022-05-11 06:35 | P.ANESUD_ITS ---
Pre-Anesthetic Update Pre-Anesthetic Assessment: Date of Surgery/Procedure: 05/11/22 Preop Ana M gnosis: Menorrhagia, uterine fibroid, pelvic pain, dysmenorrhea Proposed Procedure: Operation Date: 05/11/22 07:30 Proposed Procedures p Total abdominal hysterectomy, bilateral salpingo-oophorectomy 90733,N93.9,N94.6,R10.2-Patient is allergic to Latex, causes a rash(Not Applicable) - Ryan Petty MD s Salpingo Oophorectomy (Open)(Bilateral) - Ryan Petty MD Any changes to Pre-Anesthetic Assessment?: No Labs Last 48hrs: Short CBC 05/09/22 Range/Units 11:30 WBC 9.5 (4.0-10.0) 10^3/ uL Hgb 15.1 (11.5-15.3) g/dL Hct 44.5 (37.0-47.0) % MCV 85.2 (81-99) fl Plt Count 412 H (130-400) 10^3/c mm Neut % (Auto) 63.9 % Neut # (Auto) 6.09 (1.8-7.7) 10^3/u L BMP 05/09/22 11:30 Sodium 134 L Potassium 4.0 Chloride 100 Carbon Dioxide 26 BUN 9 Creatinine 0.5 Glucose 184 H Calcium 9.0 Liver Function 05/09/22 Range/Units 11:30 Total Bilirubin 0.6 (0.15-1.2) mg/dL AST 14 (0-32) U/L ALT 12 (0-33) U/L Alkaline Phosphata se 76 (35-105) U/L Albumin 4.0 (3.5-5.2) g/dL Urine 05/09/22 Range/Units 11:30 Urine Color Yellow (Yellow) Urine Appearance Sl hazy A (CLEAR) Urine pH 5 (5-7) Ur Specific Gravit y 1.020 (1.005-1.030) Urine Protein Neg (Negative) Urine Glucose (UA) 2+ H (Normal) Urine Ketones 1+ H (Negative) Urine Nitrate Negative (Negative) Urine Bilirubin Neg (Negative) Ur Leukocyte Elizabeth ase Negative (Negative) Urine RBC Rare (0-2) /hpf Urine WBC 0-4 H (0-5) /hpf Blood Bank 05/09/22 11:30 Blood Type O Positive Rho(D) Type Positive Antibody Screen Negative Exam: Pre-Anes Outpt Exam: alert, oriented x 3, clear to auscultation bilaterally and regular rate & rhythm Cardiac Studies: No Data to Display
[2022-05-11] MEDS: scopolamine 1.5 Patch 1 PATCH TRANSDERMA (06:41)
--- NOTE | 2022-05-11 06:47 | W.PM.OPSUD ---
Surgery/Procedure H&P Update DATE OF PROCEDURE: May 11, 2022 DATE H&P PERFORMED: 05/09/22 H&P UPDATE INFORMATION: I have reviewed H&P completed within last 30 days, I have examined patient prior to procedure and No changes to prior documentation PREOP DIAGNOSIS: Menorrhagia, uterine fibroid, pelvic pain, dysmenorrhea PLANNED PROCEDURE: Operation Date: 05/11/22 07:30 Proposed Procedures p Total abdominal hysterectomy, bilateral salpingo-oophorectomy 47123,N93.9,N94.6,R10.2-Patient is allergic to Latex, causes a rash(Not Applicable) - Ryan Petty MD s Salpingo Oophorectomy (Open)(Bilateral) - Ryan Petty MD
[2022-05-11 06:48] LABS: Glucose Point of Care 239 mg/dL (70-110)
[2022-05-11 06:58] LABS: OR HCG Qualitative Urine Negative (Negative)
[2022-05-11] MEDS: sodium chloride 0.9% 1,000 ML 30 ML IV (07:19)
[2022-05-11] MEDS: ceFOXitin 2,000 MG in sodium chloride 0.9% (plus) 50 ML 100 MG IV (07:43)
[2022-05-11] MEDS: sodium chloride 0.9% 100 mL Bag XX (08:34)
--- NOTE | 2022-05-11 09:44 | P.OP_ITS ---
Operative Report Date of procedure: May 11, 2022 Pre-op diagnosis: Preop Diagnosis Menorrhagia, uterine fibroid, pelvic pain, dysmenorrhea Post-op diagnosis: Same as above Procedure done: Total abdominal hysterectomy with bilateral salpingo-oophorectomy Specimens removed/disposition: Uterus Left and right fallopian tubes and ovaries Surgeon: Ryan Petty MD Estimated blood loss (mL): 100 IV fluids (mL): 1,000 Urine output (mL): 150 Complications: None Findings: Fibroid uterus Procedure: The patient was taken to the operating room, and after adequate level of general anesthesia was achieved, the patient was placed in the Trendelenburg position, prepped and draped in the usual sterile fashion. Subsequently, a Pfannenstiel incision was made and the incision was taken down to the fascia. The fascia was opened up sharply. The fascia was extended to the length of the incision using the Rogers scissors. At this time, the rectus muscles were dissected from the fascia superiorly and inferiorly to the symphysis pubis. The midline rectus muscles were opened sharply and extended superiorly and inferiorly. The peritoneum was visualized, grasped, opened sharply, and extended superiorly and inferiorly towards the bladder. The abdominal contents were packed superiorly away from the operative site using the lap packs. At this time, the pelvic organs were noted. The inferior and superior blades were placed in place on the Bashir self-retaining retractor. Bowel was packed away from the operative site. The fundus of the uterus was then grasped with a triple-tooth tenaculum and retracted out of the pelvic cavity into the abdominal site. At this point, Sobia clamps were placed in both right and left adnexal regions. Subsequently, using the Enseal cautery unit, the round ligaments were grasped, cauterized, and d issected. The bladder flap was then formed and the bladder flap was pushed away down anteriorly over the lower uterine segment, pushed away from the operative site on both the right and left sides. Subsequently, the posterior leaf of the broad ligament was opened sharply and the Enseal instrument was then placed below the level of the ovary in both the right and left side, care being taken not to damage bowel or uterus and the infundibulopelvic ligament was then grasped, cauterized, and again dissected. Further dissection of the broad ligament was carried down posteriorly towards the uterine vessels. The bladder was pushed inferiorly down towards the vagina. Subsequently, the uterine vessels were then grasped again with the Enseal machine, cauterized, and dissected. The cardinal ligaments were further grasped, dissected, and suture ligated, again with the Enseal machine. At that point, the Enseal machine instrument was stopped and straight Zeppelin clamps were used on the cardinal ligaments down towards the uterosacral ligaments. The cardinal ligaments were grasped, dissected with a scalpel and then ligated with transfixion sutures with #1 Vicryl suture down to the uterosacral ligaments. The uterosacral ligaments were grasped, dissected, and suture ligated again with #1 Vicryl suture and transfixion sutures. At that time, the bladder had been pushed over the vagina and at this time right-angle Zeppelin clamps were placed on the vagina at the level of the cervix, and using the Calvin scissors, the cervix was dissected away from the vagina. At this time, the vaginal cuff was then closed using interrupted sutures of #1 Vicryl suture from the midline to each lateral corner. After the good hemostasis had been achieved in the vaginal cuff, both the right and left adnexa was visualized and no more bleeding was noted. The cuff was intact with no bleeding noted. The bladder was visualized and no bleeding was noted. Seprafilm was then placed over the vaginal cuff. The Bashir self- retaining retractor was removed as well as the anterior and inferior blades. The lap packs were removed, and at this time, general closure of the abdomen was carried out. The peritoneum was closed with a 2-0 Vicryl suture and continuous running suture. The fascia was closed using a #1 Vicryl suture from each corner to the midline. Subcutaneous tissue was cauterized. No bleeding was noted. The subcutaneous tissue was then reapproximated using plain sutures and interrupted sutures, and the skin was closed using Insorb absorbable subcuticular gideon. The patient tolerated the procedure well and was transferred to the recovery room in excellent condition. The patient returned to the floor for recovery.
--- NOTE | 2022-05-11 10:00 | PC.NURSE ---
awake. oral airway removed
[2022-05-11] MEDS: fentaNYL 50 mcg/mL INJ 2mL IVP (10:25)
[2022-05-11] MEDS: ketorolac 30 mg/mL INJ IVP ×3 (11:26→23:23)
[2022-05-11] MEDS: HYDROcodone-acetaminophen 5-325 mg Tablet PO ×2 (11:26→17:16)
[2022-05-11] MEDS: lactated ringers 1,000 ML 125 ML IV (11:46)
--- NOTE | 2022-05-11 14:57 | ANE.PACU2 ---
Inpatient post-anesthesia follow up: Airway intact: Yes Vital signs: Temperature 98.3 F Pulse Rate 93 Respiratory Rate 17 Blood Pressure 121/79 Pulse Oximetry 94 Oxygen Delivery Me thod Room Air Oxygen Flow Rate 2 Fraction of Inspir ed Oxygen Hydration adequate: Yes Nausea and vomiting: No Pain level: 1 Mental status: Baseline
[2022-05-11] MEDS: docusate sodium 100 mg Capsule PO (17:16)
[2022-05-11 18:23] LABS: Glucose Point of Care 286 mg/dL (70-110)
[2022-05-11] MEDS: insulin lispro 100 unit/1 mL SUBCUT ×2 (18:24→21:01)
[2022-05-11] MEDS: lanolin oint 7 gm 1 APPLIC TOPICAL (18:36)
[2022-05-11] MEDS: dextrose 5%-lactated ringers 1,000 ML 125 ML IV (19:52)
--- NOTE | 2022-05-11 21:00 | PC.NURSE ---
This nurse obtained blood glucose level at 2100 as ordered the reading was 217. Following sliding scale orders she was given 4 units. The insulin was verified with another nurse praveen loja RN. The glucose meter did not transfer over the reading once placed on the docket.
[2022-05-11] MEDS: ARIPiprazole 10 mg Tablet 5 MG PO (21:02)
[2022-05-11] MEDS: prazosin 5 mg Capsule PO (21:02)
[2022-05-12] MEDS: dextrose 5%-lactated ringers 1,000 ML 125 ML IV (02:07)
[2022-05-12 02:20] VITALS: BP 112/74; PULSE 84; RESP 19; O2SAT 98
[2022-05-12 04:00] VITALS: BP 97/60; PULSE 96; RESP 18; TEMP 36.6; O2SAT 96
[2022-05-12] MEDS: HYDROcodone-acetaminophen 5-325 mg Tablet PO ×3 (04:08→21:13)
[2022-05-12] MEDS: ketorolac 30 mg/mL INJ IVP (04:50)
--- NOTE | 2022-05-12 05:00 | PC.NURSE ---
Patient's dasilva was removed at this time 10 ml was removed from balloon and catheter was intact upon removal. Patient tolerated procedure well. She does not have vaginal packing. Patient has been up to the chair and walked throughout the night. She has had solid food and tolerated it well. Her pain is managed with taking toradol as scheduled and hydrocodone as needed.
[2022-05-12 05:03] LABS: Hematocrit 33.1 % (37.0-47.0); Hemoglobin 11.2 g/dL (11.5-15.3); Mean Corpuscular HGB Conc 33.8 g/dL (30.0-36.0); Mean Corpuscular Hemoglobin 29.4 pg (28.0-34.0); Mean Corpuscular Volume 86.9 fl (81-99); Mean Platelet Volume 10.2 fL (7.4-10.4); Platelet Count 291 10^3/cmm (130-400); Red Blood Count 3.81 10^6/uL (4.1-5.3); Red Cell Distribution Width 12.5 % (12.1-15.1); White Blood Count 11.1 10^3/uL (4.0-10.0)
[2022-05-12 05:27] LABS: Glucose Point of Care 217 mg/dL (70-110)
[2022-05-12] MEDS: PARoxetine 20 mg Tablet 40 MG PO (06:15)
[2022-05-12] MEDS: fluticasone nasal spray 16gm Btl 1 SPRAY INTRANASAL (10:19)
[2022-05-12] MEDS: lisinopril 10 mg Tablet PO (10:20)
[2022-05-12] MEDS: insulin lispro 100 unit/1 mL SUBCUT ×3 (10:20→21:13)
[2022-05-12] MEDS: docusate sodium 100 mg Capsule PO ×2 (10:20→17:51)
[2022-05-12] MEDS: ibuprofen 800 mg tablet PO ×2 (10:20→17:51)
[2022-05-12] MEDS: insulin glargine 100 units/1 mL 20 UNIT SUBCUT (10:20)
[2022-05-12 10:25] VITALS: BP 122/63; PULSE 101; RESP 16; TEMP 37
[2022-05-12 11:03] LABS: Glucose Point of Care 221 mg/dL (70-110)
--- NOTE | 2022-05-12 11:52 | P.PN_ITS ---
Subjective Subjective: Basic smoker 46-year-old female status post total abdominal hysterectomy with bilateral salpingo-oophorectomy postoperative day 1. Pain well under control Vitals/I&O/Wt Last Vital Signs Temp 98.6 F 05/12/22 10:25 Pulse 101 H 05/12/22 10:25 Resp 16 05/12/22 10:25 BP 122/63 05/12/22 10:25 Pulse Ox 96 05/12/22 04:00 O2 Del Method 05/12/22 10:25 O2 Flow Rate 2 05/11/22 10:40 05/11/22 05/12/22 05/12/22 22:59 06:59 14:59 Intake Total 2400 / 4900 781.25 / 5681.25 Output Total 500 / 1400 550 / 1950 Balance 1900 / 3500 231.25 / 3731.25 Physical Exam Narrative: GA: Alert and oriented ?3. HEENT: WNL. Heart: Regular rate and rhythm. Lungs: Clear to auscultation bilaterally. Abdomen: Bowel sounds present, nontender, minimal tenderness, incision clean and dry, no redness, pain or edema. 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 Extremities: No edema, no cyanosis, no calves pain. Urinary Catheter Management: Latex Free: Cath Placed During This Visit: yes Urinary Catheter Date of Insertion: 05/11/22 Urinary Catheter Time of Insertion: 08:00 Chadwick: Cath Placed During This Visit: yes, but has since been removed by the nurse Reason for Continuing Indwelling Catheter: Decision to DC Catheter Date Urinary Catheter Removed: 05/12/22 Time Urinary Catheter Discontinued: 05:09 Data 05/12/22 04:55 05/09/22 11:30 A&P Assessment and plan (1) Status post abdominal hysterectomy and salpingo-oophorectomy: Mrs. Underwood 46-year-old female is status post total abdominal hysterectomy with bilateral salpingo-oophorectomy postoperative day 1. She is afebrile and hemodynamically stable. Overnight observation uneventful. Adequate urine output. Tolerating diet well. Plan Postop observation Attestations Medical Necessity Statement*: In my professional opinion per admitting diagnosis. Coding Level of Care Code Acute Code for Chg Fwd Diagnoses Status post abdominal hysterectomy and salpingo-oophorectomy
[2022-05-12] MEDS: simethicone 80 mg Chew PO (16:21)
[2022-05-12 16:23] VITALS: BP 107/67; PULSE 96; RESP 17; TEMP 36.6
[2022-05-12 19:28] LABS: Glucose Point of Care 305 mg/dL (70-110)
[2022-05-12] MEDS: ARIPiprazole 10 mg Tablet 5 MG PO (21:01)
[2022-05-12] MEDS: prazosin 5 mg Capsule PO (21:01)
[2022-05-12 21:10] LABS: Glucose Point of Care 173 mg/dL (70-110)
[2022-05-12 21:15] VITALS: BP 107/68; PULSE 92; RESP 15; TEMP 36.7; O2SAT 96
[2022-05-13] MEDS: ibuprofen 800 mg tablet PO ×2 (03:26→09:12)
[2022-05-13] MEDS: HYDROcodone-acetaminophen 5-325 mg Tablet PO ×3 (03:27→14:33)
[2022-05-13 04:00] VITALS: BP 101/65; PULSE 90; RESP 17; TEMP 36.6; TEMP 36.7; O2SAT 95
[2022-05-13 07:41] LABS: Glucose Point of Care 127 mg/dL (70-110)
[2022-05-13 09:00] VITALS: BP 107/67; PULSE 103; RESP 16; TEMP 36.8
[2022-05-13] MEDS: pneumococcal (23 valent) SDV 0.5 mL IM (09:07)
[2022-05-13] MEDS: docusate sodium 100 mg Capsule PO (09:09)
[2022-05-13] MEDS: PARoxetine 20 mg Tablet 40 MG PO (09:09)
[2022-05-13] MEDS: lisinopril 10 mg Tablet PO (09:10)
[2022-05-13] MEDS: insulin glargine 100 units/1 mL 20 UNIT SUBCUT (09:10)
[2022-05-13] MEDS: fluticasone nasal spray 16gm Btl 1 SPRAY INTRANASAL (09:19)
--- NOTE | 2022-05-13 12:27 | P.DS_ITS ---
Discharge Providers NUCLEAR MEDICINE PET CT TECHNOLOGIST Date of Admission: 05/11/22 10:45 Date of Discharge: 05/13/22 Attending Provider at Admission: Ryan Petty MD Attending Provider at Discharge: Ryan Petty MD Primary NUCLEAR MEDICINE PET CT TECHNOLOGIST: Ryan Petty MD Primary Care Provider: ISAEL Blanchard Diagnoses at Discharge Discharge Diagnosis (1) Status post abdominal hysterectomy and salpingo-oophorectomy: Status: Acute Reason for Visit Reason for Visit: Pred in Op 05/09/22 Brief History: Ms. Underwood is a 46 year old with a history of chronic pelvic pain, uterine fibroids and menorrhagia unresponsive to medical management. Hospital Course Hospital Course Mrs. Underwood 46-year-old female with a history of chronic pelvic pain, uterine fibroid and menorrhagia unresponsive to medical management. Admitted for planned total abdominal hysterectomy and bilateral salpingo-oophorectomy. The procedures were performed without complication. Postoperative observation unremarkable. She is afebrile and hemodynamically stable postoperative day 2. Tolerating diet well. Ambulating without difficulty. Pain well under control. She was counseled regarding pelvic rest for 6 weeks (no sex, no tampons, no vaginal douches). Return to the emergency room if any fever, increased bleeding or pain. Physical Exam Narrative: GA: Alert and oriented ?3. HEENT: WNL. Heart: Regular rate and rhythm. Lungs: Clear to auscultation bilaterally. Abdomen: Bowel sounds present, nontender, minimal tenderness, incision clean and dry, no redness, pain or edema. 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 Extremities: No edema, no cyanosis, no calves pain. Urinary Catheter Management: Latex Free: Cath Placed During This Visit: yes Urinary Catheter Date of Insertion: 05/11/22 Urinary Catheter Time of Insertion: 08:00 Chadwick: Cath Placed During This Visit: yes, but has since been removed by the nurse Reason for Continuing Indwelling Catheter: Decision to DC Catheter Date Urinary Catheter Removed: 05/12/22 Time Urinary Catheter Discontinued: 05:09 History History History 4 Term 3 0 Miscarriages/Ectopic 1 Living Children 3 Discharge Data Studies Completed and Pending Pending at discharge Category Date Time Status Pathology: Surgical [PTH] Routine Pth 05/11/22 09:38 Received Laboratory Results WBC 11.1 10^3/uL (4.0-10.0) H 05/12/22 04:55 RBC 3.81 10^6/uL (4.1-5.3) L 05/12/22 04:55 Hgb 11.2 g/dL (11.5-15.3) L 05/12/22 04:55 Hct 33.1 % (37.0-47.0) L 05/12/22 04:55 MCV 86.9 fl (81-99) 05/12/22 04:55 MCH 29.4 pg (28.0-34.0) 05/12/22 04:55 MCHC 33.8 g/dL (30.0-36.0) 05/12/22 04:55 RDW 12.5 % (12.1-15.1) 05/12/22 04:55 Plt Count 291 10^3/cmm (130-400) 05/12/22 04:55 MPV 10.2 fL (7.4-10.4) 05/12/22 04:55 Neut % (Auto) 63.9 % 05/09/22 11:30 Lymph % (Auto) 28.6 % 05/09/22 11:30 Bryan % (Auto) 5.3 % 05/09/22 11:30 Eos % (Auto) 1.3 % 05/09/22 11:30 Baso % (Auto) 0.6 % 05/09/22 11:30 Neut # (Auto) 6.09 10^3/uL (1.8-7.7) 05/09/22 11:30 Lymph # (Auto) 2.7 10^3/uL (0.8-4.8) 05/09/22 11:30 Bryan # (Auto) 0.5 10^3/uL (0.2-0.9) 05/09/22 11:30 Eos # (Auto) 0.1 10^3/uL (0.0-0.8) 05/09/22 11:30 Baso # (Auto) 0.1 10^3/uL (0.0-0.1) 05/09/22 11:30 Nucleated RBC % (auto) 0 % 05/09/22 11:30 Nucleated RBCs # 0.0 /100WBC 05/09/22 11:30 Sodium 134 mmol/L (136-145) L 05/09/22 11:30 Potassium 4.0 mmol/L (3.5-5.1) 05/09/22 11:30 Chloride 100 mmol/L (98-107) 05/09/22 11:30 Carbon Dioxide 26 mmol/L (22-29) 05/09/22 11:30 Anion Gap 12.0 (5-19) 05/09/22 11:30 BUN 9 mg/dL (6-20) 05/09/22 11:30 Creatinine 0.5 mg/dL (0.5-0.9) 05/09/22 11:30 GFR Calculation 133.4 mL/min (90-130) H 05/09/22 11:30 Glucose 184 mg/dL (65-115) H 05/09/22 11:30 POC Glucose 127 mg/dL (70-110) H 05/13/22 07:29 Calculated Osmolality 281 mOsm/kg (285-295) L 05/09/22 11:30 Calcium 9.0 mg/dL (8.5-10.5) 05/09/22 11:30 Total Bilirubin 0.6 mg/dL (0.15-1.2) 05/09/22 11:30 AST 14 U/L (0-32) 05/09/22 11:30 ALT 12 U/L (0-33) 05/09/22 11:30 Alkaline Phosphatase 76 U/L (35-105) 05/09/22 11:30 Total Protein 7.0 g/dL (6.6-8.7) 05/09/22 11:30 Albumin 4.0 g/dL (3.5-5.2) 05/09/22 11:30 Globulin 3.0 g/dL (1.3-4.6) 05/09/22 11:30 Urine Color Yellow (Yellow) 05/09/22 11:30 Urine Appearance Sl hazy (CLEAR) A 05/09/22 11:30 Urine pH 5 (5-7) 05/09/22 11:30 Ur Specific Peggs 1.020 (1.005-1.030) 05/09/22 11:30 Urine Protein Neg (Negative) 05/09/22 11:30 Urine Glucose (UA) 2+ (Normal) H 05/09/22 11:30 Urine Ketones 1+ (Negative) H 05/09/22 11:30 Urine Blood 3+ (Negative) H 05/09/22 11:30 Urine Nitrate Negative (Negative) 05/09/22 11:30 Urine Bilirubin Neg (Negative) 05/09/22 11:30 Urine Urobilinogen Norm mg/dL (Negative) 05/09/22 11:30 Ur Leukocyte Esterase Negative (Negative) 05/09/22 11:30 Urine RBC Rare /hpf (0-2) 05/09/22 11:30 Urine WBC 0-4 /hpf (0-5) H 05/09/22 11:30 Ur Squamous Epith Cells 0-4 /hpf (0-5) H 05/09/22 11:30 Amorphous Sediment Not Reportable 05/09/22 11:30 Urine Bacteria Trace /hpf (NONE) 05/09/22 11:30 Urine HCG, Qual Negative (Negative) 05/11/22 06:53 Blood Type O Positive 05/09/22 11:30 Rho(D) Type Positive 05/09/22 11:30 Antibody Screen Negative 05/09/22 11:30 Vitals Last Vital Signs Temp 98.2 F 05/13/22 09:00 Pulse 103 H 05/13/22 09:00 Resp 16 05/13/22 09:00 BP 107/67 05/13/22 09:00 Pulse Ox 95 05/13/22 04:00 O2 Del Method 05/13/22 04:00 O2 Flow Rate 2 05/11/22 10:40 Discharge Plan Discharge Patient Disposition: Home Condition: Stable Prescriptions: New acetaminophen 325 mg capsule 325 mg PO Q4H PRN (Reason: fever or postoperative pain) Qty: 60 0RF ibuprofen 800 mg tablet 800 mg PO TID PRN (Reason: pain) Qty: 60 0RF hydrocodone-acetaminophen 5-325 mg tablet 1 tab PO Q4H PRN (Reason: pain) Qty: 30 0RF Continued (DME) pen needle, diabetic [1st Tier Unifine Pentips] 31 gauge x 1/4 needle See Rx Instructions .ROUTE .MEDSUPPLY Qty: 100 6RF Rx Instructions: As directed lisinopril 10 mg tablet See Rx Instructions .ROUTE .COMPLEX Qty: 30 2RF Dose Instruction: Take 1 tablet by mouth once daily Rx Instructions: Take 1 tablet by mouth once daily fluticasone propionate [Flonase Allergy Relief] 50 mcg/actuation spray,suspension 1 spray intranasal DAILY Qty: 15.8 11RF Rx Instructions: administer into each nostril (DME) Blood Glucose Test Strip See Rx Instructions .ROUTE .MEDSUPPLY Qty: 50 5RF Rx Instructions: As directed (DME) blood-glucose meter [Blood Glucose Monitoring] Kit See Rx Instructions .ROUTE .MEDSUPPLY Qty: 1 0RF Rx Instructions: As directed; to test tid and prn (DME) lancets 31 gauge misc See Rx Instructions .ROUTE .MEDSUPPLY Qty: 100 3RF Rx Instructions: As directed; to test tid and prn naproxen 500 mg tablet 500 mg PO BID Qty: 60 2RF triamcinolone acetonide 0.1 % cream 1 applic topical BID 14 Days Qty: 80 1RF aripiprazole 5 mg tablet 5 mg PO BEDTIME Qty: 30 2RF Rx Instructions: 1 tablet by mouth daily at bedtime paroxetine HCl 40 mg tablet 40 mg PO QAM Qty: 30 2RF Rx Instructions: take one tablet by mouth every morning prazosin 5 mg capsule 5 mg PO BEDTIME Qty: 30 2RF Rx Instructions: take one capsule daily at bedtime eszopiclone [Lunesta] 2 mg tablet 2 mg PO BEDTIME PRN (Reason: insomnia) Qty: 30 2RF Rx Instructions: Take 1 tablet daily at bedtime if needed for insomnia miconazole nitrate 2 % cream 1 applic topical BID Qty: 42.5 0RF Rx Instructions: Apply twice daily to affected areas on legs for 4 weeks ciclopirox 0.77 % cream 1 applic topical 1XD albuterol sulfate [ProAir HFA] 90 mcg/actuation HFA aerosol inhaler 2 puff inhalation Q6H PRN (Reason: shortness of breath or wheezing) Qty: 18 2RF Levemir FlexTouch U-100 Insuln 100 unit/mL (3 mL) insulin pen 20 unit SUBCUT DAILY Qty: 30 2RF Rx Instructions: every evening. cetirizine [Zyrtec] 10 mg tablet 10 mg PO DAILY PRN (Reason: Allergy Symptoms) tizanidine 4 mg tablet 4 mg PO DIRECTED PRN (Reason: muscle spasticity) ergocalciferol (vitamin D2) 1,250 mcg (50,000 unit) capsule 50,000 unit PO DIRECTED Victoza 2-Ky 0.6 mg/0.1 mL (18 mg/3 mL) pen injector 0.3 mg SUBCUT 2XD Rx Instructions: INJECT 1.8MG (0.3ML) SUBCUTANEOUSLY EVERY 24 HOURS Discharge Orders: Discharge Order (Routine); Ordered 05/13/22 Ordered By: Ryan Petty Referrals: Ryan Petty MD [Physician] - 05/25/22 3:45 pm (2 week post-op: 05/25/22 @3:45 6 week post-op: 06/21/22 @3:45) Discharge Diet: Usual diet Discharge Activity: Limit activity as instructed Patient Instructions: Laparoscopic Oophorectomy (GEN), Hysterectomy (GEN), OB Abdominal Surgery - [facility], OB Discharge Report, OB Laproscopic Surgery - [facility], OB Food/Drug Interaction Guide, Opioid Safety Activity Restrictions/Additional Instructions: 1. Please call [facility] clinic on next working day to make your post-operative appointment in 2 weeks. 2. Please stay home until you come back to the clinic on first post-operative check up. 3. Please follow instructions on your medications CAREFULLY. 4. If you have abdominal incision, do not cover it unless dressing is necessary because of drainage. OK to shower, but avoid bath. Leave steri-strips until they fall off. If they are still on one week after surgery, you may remove them. 5. If you had vaginal surgery or vaginal repair, Dr. Petty may instruct you to take SITZ bath. 6. Yellow, blood tinged odorous vaginal discharge is usually normal after hysterectomy or vaginal surgeries. 7. No sexual intercourse, tampons, or douches until you are completely released from the post-operative care. 8. Avoid constipation by eating right and maybe using some Metamucil or Milk of Magnesia. 9. All prescription refills are given during the working hours. Please do no wait till it runs out. Call the clinic at [phone] before your medication runs out. The clinic will get in touch with your doctor to prescribe medications if necessary. 10. Please remain within 40 mile radius from our hospital because emergencies do happen now and then during the post-operative period. 11. If you have stairs at home, take one step at a time slowly and minimize the number of trips. It helps to stay in one floor for the next few days. No lifting except what you can lift by one hand until you are released from the post-operative care. 12. Driving is discouraged until you are well healed. It may be 3-4 weeks before you feel strong enough to drive. You should be able to turn and look through the rear window without pain and you should be able to push the brake pedal very hard without pain before you drive. No fast rules, but SAFETY should be your primary concern. DO NOT drive if you are on sedating medications such as narcotics. 13. Call the clinic (during working hours) to make urgent appointment or go to the Emergency room, if any of the following occurs: i. Vaginal bleeding becomes heavy, more than a period. ii. Incision becomes red and sore, or drains pus. iii. Your temperature is over 100.4 or you have chill. iv. IV site becomes red and swollen (a little ``knot?? is usually OK) v. Persistent nausea and vomiting vi. Persistent constipation or diarrhea vii. Rash or allergic reaction to medications. Discharge Attestations NUCLEAR MEDICINE PET CT TECHNOLOGIST Time Spent in Discharge Care*: greater than 30 min Coding Level of Care Code Acute Code for Chg Fwd Diagnoses Status post abdominal hysterectomy and salpingo-oophorectomy
[2022-05-13 14:30] VITALS: BP 124/72; PULSE 105; RESP 17; TEMP 36.4; O2SAT 97
[2022-05-13 14:45] VITALS: BP 124/72; PULSE 105; RESP 17; TEMP 36.4; O2SAT 97
== END 2022-05-13 14:45 | disposition home or self-care (01) | DRG 742 ==
LOC: OBGYN 05-12 06:20
PROVIDERS: Admitting Provider Obstetrics & Gynecology; PCP Nurse Practitioner Family; Visit Provider Obstetrics & Gynecology
PROC: 0UT90ZZ Resection of Uterus, Open Approach (ICD-10-PCS; CPT 58150; principal; 2022-05-11 07:30)
PROC: 0UT90ZZ Resection of Uterus, Open Approach (ICD-10-PCS; CPT 58720; 2022-05-11 07:30)
DX: D25.9 Leiomyoma of uterus, unspecified (principal); F33.9 Major depressive disorder, recurrent, unspecified; N94.6 Dysmenorrhea, unspecified; N92.1 Excessive and frequent menstruation with irregular cycle; G89.29 Other chronic pain; E03.9 Hypothyroidism, unspecified; I10 Essential (primary) hypertension; F43.12 Post-traumatic stress disorder, chronic; E11.9 Type 2 diabetes mellitus without complications; Z79.84 Long term (current) use of oral hypoglycemic drugs; Z79.4 Long term (current) use of insulin
CPT/HCPCS: 36415; 36416; 51702; 80053; 81001; 81025; 82962; 84703; 85025; 85027; 86850; 86900; 88307; 90471; 90732; 96372; 96374; 96376; C9290; J0131; J0330; J0694; J1100; J1170; J1200; J1815; J1885; J2250; J2405; J2704; J2710; J3010; J3490; J7030; J7040; J7120; J7121; Q9968

== ENCOUNTER → 2022-08-31 10:30 | Outpatient (BNVA) | payer MEDICAID, SELFPAY ==
[2022-08-31 09:40] VITALS: BP 154/90; BMI 41.1
== END ==
PROVIDERS: PCP Nurse Practitioner Family; Visit Provider Nurse Practitioner Psychiatric/Mental Health
DX: Z79.899 Other long term (current) drug therapy (principal)
CPT/HCPCS: 80048; 80061; 83036

== ENCOUNTER → 2022-10-04 15:00 | Outpatient (BNVA) | payer MEDICAID, SELFPAY ==
[2022-08-31 09:40] VITALS: BP 154/90; BMI 41.1
== END ==
PROVIDERS: PCP Nurse Practitioner Family; Referring Provider Nurse Practitioner Family; Visit Provider Physician Assistant
DX: M47.812 Spondylosis without myelopathy or radiculopathy, cervical region; Z98.1 Arthrodesis status
CPT/HCPCS: 72050; 99213

== ENCOUNTER → 2022-11-14 09:43 | Outpatient (BNVA) | payer BC, MEDICAID, SELFPAY ==
[2022-08-31 09:40] VITALS: BP 154/90; BMI 41.1
== END ==
PROVIDERS: PCP Nurse Practitioner Family; Visit Provider Nurse Practitioner Family
DX: R39.9 Unspecified symptoms and signs involving the genitourinary system (principal); N39.0 Urinary tract infection, site not specified
CPT/HCPCS: 81003

== ENCOUNTER → 2022-12-12 08:56 | Outpatient (BNVA) | payer MEDICAID, SELFPAY ==
[2022-08-31 09:40] VITALS: BP 154/90; BMI 41.1
== END ==
PROVIDERS: PCP Nurse Practitioner Family; Visit Provider Nurse Practitioner Family
DX: Z12.39 Encounter for other screening for malignant neoplasm of breast (principal); Z23 Encounter for immunization; E11.9 Type 2 diabetes mellitus without complications; E55.9 Vitamin D deficiency, unspecified; N39.0 Urinary tract infection, site not specified; E78.5 Hyperlipidemia, unspecified; I10 Essential (primary) hypertension
CPT/HCPCS: 80053; 80061; 81000; 82043; 82306; 83036; 84443; 85025

== ENCOUNTER 2023-05-09 08:54 | Outpatient (CLI) | payer MEDICAID, SELFPAY ==
[2022-08-31 09:40] VITALS: BP 154/90; BMI 41.1
--- NOTE | 2023-05-09 09:00 | MM_ITS ---
WS: [id number] BILATERAL 3D TOMOSYNTHESIS DIGITAL SCREENING MAMMOGRAPHY WITH CAD CLINICAL INFORMATION: Z12.39 - Encounter for other screening for malignant neop... HISTORY: Screening mammogram. No current complaints. COMPARISON: 2019 TECHNIQUE: Bilateral CC and MLO views. FINDINGS: Scattered fibroglandular densities bilaterally. No suspicious focal mass, asymmetry, calcifications, or architectural distortion. No evidence of malignancy. IMPRESSION: MM/[place] [id number] BI-RADS: 1-Negative FOLLOW UP: 1 Year Follow-up Recommend return to annual screening mammography.
== END 2023-05-09 08:55 | disposition home or self-care (01) ==
LOC: MOBLMAM 08:59
PROVIDERS: PCP Nurse Practitioner Family; Visit Provider Nurse Practitioner Family
DX: Z12.31 Encounter for screening mammogram for malignant neoplasm of breast (principal)
CPT/HCPCS: 77063; 77067

== ENCOUNTER → 2023-05-23 11:41 | Outpatient (BNVA) | payer MEDICAID, SELFPAY ==
[2022-08-31 09:40] VITALS: BP 154/90; BMI 41.1
== END ==
PROVIDERS: PCP Nurse Practitioner Family; Visit Provider Nurse Practitioner Family
DX: R30.0 Dysuria (principal); I10 Essential (primary) hypertension; E78.5 Hyperlipidemia, unspecified; E11.9 Type 2 diabetes mellitus without complications; E03.9 Hypothyroidism, unspecified; E55.9 Vitamin D deficiency, unspecified
CPT/HCPCS: 80053; 80061; 82306; 83036; 84443; 85025

== ENCOUNTER → 2023-05-25 10:42 | Outpatient (BNVA) | payer MEDICAID, SELFPAY ==
[2022-08-31 09:40] VITALS: BP 154/90; BMI 41.1
== END ==
PROVIDERS: PCP Nurse Practitioner Family; Visit Provider Nurse Practitioner Family
DX: B37.31 Acute candidiasis of vulva and vagina (principal)
CPT/HCPCS: 81003; 87070; 87205

== ENCOUNTER → 2023-09-21 10:33 | Outpatient (BNVA) | payer MEDICAID, SELFPAY ==
[2022-08-31 09:40] VITALS: BP 154/90; BMI 41.1
== END ==
PROVIDERS: PCP Nurse Practitioner Family; Visit Provider Family Medicine
DX: L91.8 Other hypertrophic disorders of the skin (principal)
CPT/HCPCS: 88304

== ENCOUNTER → 2024-06-21 14:24 | Outpatient (BNVA) | payer MEDICAID, SELFPAY ==
[2022-08-31 09:40] VITALS: BP 154/90; BMI 41.1
== END ==
PROVIDERS: PCP Nurse Practitioner Family; Visit Provider Nurse Practitioner Family
DX: R30.0 Dysuria (principal)
CPT/HCPCS: 81000

== ENCOUNTER → 2024-07-03 09:22 | Outpatient (BNVA) | payer MEDICAID, SELFPAY ==
[2022-08-31 09:40] VITALS: BP 154/90; BMI 41.1
== END ==
PROVIDERS: PCP Nurse Practitioner Family; Visit Provider Nurse Practitioner Family
DX: E11.9 Type 2 diabetes mellitus without complications (principal)
CPT/HCPCS: 80053; 80061; 82043; 82306; 82607; 83036; 84443; 85025

== ENCOUNTER 2024-09-04 08:51 | Outpatient (CLI) | payer MEDICAID, SELFPAY ==
[2022-08-31 09:40] VITALS: BP 154/90; BMI 41.1
--- NOTE | 2024-09-04 09:00 | MM_ITS ---
WS: [id number] BILATERAL SCREENING DIGITAL TOMOSYNTHESIS MAMMOGRAM WITH CAD HISTORY: Z12.39 - Encounter for other screening for malignant neop... COMPARISON: 05/09/2023, 11/07/2018 Bilateral CC and MLO views with tomosynthesis and synthetic mammography submitted. Computer aided detection analyzed. Breast composition: There are scattered areas of fibroglandular density. No suspicious masses, microcalcifications or architectural distortion. MM/MM scr BI tomosynthesis [id number] IMPRESSION: BI-RADS: 1 - Negative. FOLLOW UP: 1 Year Follow-up
== END 2024-09-04 08:52 | disposition home or self-care (01) ==
PROVIDERS: PCP Nurse Practitioner Family; Visit Provider Nurse Practitioner Family
DX: Z12.31 Encounter for screening mammogram for malignant neoplasm of breast (principal); R92.323 Mammographic fibroglandular density, bilateral breasts
CPT/HCPCS: 77063; 77067

== ENCOUNTER 2024-09-13 12:33 | Emergency (ER) | payer MEDICAID, SELFPAY ==
[2022-08-31 09:40] VITALS: BP 154/90; BMI 41.1
[2024-09-13 13:08] VITALS: PULSE 86; RESP 16; TEMP 36.8; O2SAT 97
[2024-09-13] MEDS: tetracaine 0.5% Op Soln 4 mL Btl 1 DROP EYE-LEFT (14:10)
[2024-09-13] MEDS: tetanus-dipt-pertussis 0.5 mL SDV IM (14:10)
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
[2024-09-13] MEDS: erythromycin Op Oint 1 gm 1 APPLIC EYE-LEFT (14:41)
== END 2024-09-13 14:53 | disposition home or self-care (01) ==
PROVIDERS: Emergency Provider Nurse Practitioner; PCP Nurse Practitioner Family
DX: S05.02XA Injury of conjunctiva and corneal abrasion without foreign body, left eye, initial encounter (principal); Z72.0 Tobacco use; Z79.85 Long-term (current) use of injectable non-insulin antidiabetic drugs; E78.5 Hyperlipidemia, unspecified; I10 Essential (primary) hypertension; W22.8XXA Striking against or struck by other objects, initial encounter
CPT/HCPCS: 90471; 90715; 99283; 99291; J9999

== ENCOUNTER → 2024-12-31 11:11 | Outpatient (BNVA) | payer MEDICAID, SELFPAY ==
[2022-08-31 09:40] VITALS: BP 154/90; BMI 41.1
== END ==
PROVIDERS: PCP Nurse Practitioner Family; Visit Provider Nurse Practitioner Family
DX: E11.9 Type 2 diabetes mellitus without complications (principal)
CPT/HCPCS: 80053; 80061; 82306; 82607; 83036; 84443; 85025